=== PATIENT | female | born 1990 | race Caucasian/White ===

== ENCOUNTER 2017-07-20 07:59 | Emergency (ER) | payer MEDICAID ==
[2017-07-20 08:14] VITALS: BP 125/81
[2017-07-20 09:01] LABS: Basophils % (Auto) 0.8 % (0.0-1.8); Hematocrit 34.4 % (30.3-42.9); Hemoglobin 10.8 gm/dl (10.1-14.3); Mean Corpuscular HGB Conc 31 % (30-34); Mean Corpuscular Volume 78 fl (79-97); Platelet Count 350 K/mm3 (140-440); Red Blood Count 4.42 M/mm3 (3.65-5.03); Red Cell Distribution Width 16.7 % (13.2-15.2); White Blood Count 7.3 K/mm3 (4.5-11.0)
[2017-07-20 09:21] LABS: Mean Corpuscular Hemoglobin 24 pg (28-32)
[2017-07-20 09:23] LABS: Alanine Aminotransferase 10 units/L (7-56); Albumin/Globulin Ratio 1.3 %; Alkaline Phosphatase 54 units/L (35-129); Anion Gap 16 mmol/L; Blood Urea Nitrogen 9 mg/dL (7-17); Calcium 8.9 mg/dL (8.4-10.2); Carbon Dioxide 24 mmol/L (22-30); Chloride 104.1 mmol/L (98-107); Glucose 104 mg/dL (65-100); Lipase 16 units/L (13-60); Potassium 4.1 mmol/L (3.6-5.0); Sodium 140 mmol/L (137-145); Total Protein 7.1 g/dL (6.3-8.2)
[2017-07-20 09:24] LABS: Bacteria,Urine 1+ /HPF (Negative); Bilirubin,Urine NEG (Negative); Blood,Urine NEG (Negative); Ketones,Urine NEG (Negative); Leukocyte Esterase,Urine NEG (Negative); Mucus,Urine 3+ /HPF; Nitrite,Urine NEG (Negative); Protein,Urine <15 mg/dL mg/dL (Negative); Urobilinogen,Urine < 2.0 mg/dL (<2.0)
--- NOTE | 2017-07-20 15:12 | Emergency Department Report ---
Entered by SANTI MAX, acting as scribe for ALYSE AGUILAR PA. ED Abdominal Pain HPI - General Chief Complaint: Abdominal Pain Stated Complaint: ABD PAIN Time Seen by Provider: 07/20/17 10:23 Source: patient Mode of arrival: Ambulatory Limitations: No Limitations - History of Present Illness Initial Comments: 27 y/o female with a PMHx of gestational diabetes, migraines, asthma, heart murmur, and anemia presents to the ED c/o lower abdominal pain that began 2 days ago. Rates pain a 6/10 in severity, which she describes as aching and cramping in quality. Aggravated with movement and alleviated with nothing. Denies nausea, vomiting, diarrhea, fever, chills, dysuria, urinary frequency and urgency, and vaginal discharge. LMP 06/08/2017. Reports her menstrual cycles are usually irregular. Notes her OB is Dr. Shady Hensley at [place]. Patient also c/o a headache that began 1 week ago. Patient states that headache is sometimes in the front or in the back. Rates current headache a 7/10 in severity, which she describes as aching in quality. Denies any recent head trauma/injury, blurry vision, and LOC. Denies wearing glasses or contacts regularly. Patient states this headache does not feel similar to her previous chronic headache. NKDA. STOKES Complaint: abdominal pain Onset/Timin -: days(s) Location: LLQ, RLQ, suprapubic Radiation: none Migration to: no migration Severity: moderate Severity scale (0 -10): 6 Quality: cramping, aching Consistency: constant Improves With: nothing Worsens With: movement Context: other (possible ) Associated Symptoms: denies other symptoms. denies: nausea, vomiting, diarrhea , fever, chills, constipation, dysuria, hematemesis, hematochezia, melena, hematuria, anorexia, syncope - Related Data LMP Date: 06/08/17 LMP (females 10-50): 1 month Previous Rx's Medication Instructions Recorded Last Taken Type metroNIDAZOLE 0.75% [Vandazole 1 applicator VG QHS #5 tube 12/04/15 04/30/16 Rx 0.75% VAGINAL] Diphenhydramine HCl [Benadryl 25 mg PO Q8HR #15 tablet 12/31/15 04/30/16 11:00 Rx Allergy TAB] 1 Ferrous Sulfate [Feosol 325 MG tab] 325 mg PO BID #60 tablet 05/23/16 Unknown Rx HYDROcodone/APAP 5-325 [[place] 1 each PO Q6HR PRN #30 tablet 05/23/16 Unknown Rx 5/325] Vit W-Ca,Fe,FA(<1 mg) 1 each PO DAILY #30 tablet 05/23/16 Unknown Rx [ Vitamins] Ibuprofen [Motrin 800 MG tab] 800 mg PO Q8HR PRN #30 tablet 07/20/17 Unknown Rx Promethazine HCl [Phenergan SUPPOS] 25 mg PO Q8HR PRN #10 tab 07/20/17 Unknown Rx Sulfamethoxazole/Trimethoprim 1 each PO BID #14 tablet 07/20/17 Unknown Rx [Bactrim DS TAB] Allergies Allergy/AdvReac Type Severity Reaction Status Date / Time pineapple [Pineapple] Allergy Mild Itching Verified 03/14/14 12:24 coconut Allergy Severe Swelling Uncoded 03/13/14 21:37 ED Review of Systems Comment: All other systems reviewed and negative Constitutional: denies: chills, fever Eyes: denies: eye pain, eye discharge, vision change ENT: denies: ear pain, throat pain Respiratory: denies: cough, shortness of breath, wheezing Cardiovascular: denies: chest pain, palpitations Endocrine: no symptoms reported Gastrointestinal: abdominal pain (lower abdomen). denies: nausea, vomiting, diarrhea, constipation, hematemesis, melena, hematochezia Genitourinary: denies: urgency, dysuria, frequency, hematuria, discharge, abnormal menses, dyspareunia Musculoskeletal: denies: back pain, joint swelling, arthralgia, myalgia Skin: denies: rash, lesions Neurological: headache. denies: weakness, numbness, paresthesias, confusion, abnormal gait, vertigo Psychiatric: denies: anxiety, depression Hematological/Lymphatic: denies: easy bleeding, easy bruising ED Past Medical Hx - Past Medical History Previous Medical History?: Yes Hx Congestive Heart Failure: No Hx Diabetes: (gestational) Hx Deep Vein Thrombosis: No Hx Renal Disease: No Hx Sickle Cell Disease: No Hx Headaches / Migraines: Yes Hx Seizures: No Hx Asthma: Yes (prn meds 3 yrs ago) Hx COPD: No Additional medical history: heart murmur. anemia - Surgical History Past Surgical History?: Yes Additional Surgical History: on March, - Family History Family history: no significant - Social History Smoking Status: Never Smoker Substance Use Type: Non Opiate Pain, Prescribed - Medications Home Medications: Home Medications Medication Instructions Recorded Confirmed Last Taken Type metroNIDAZOLE 0.75% [Vandazole 1 applicator VG QHS #5 tube 12/04/15 05/22/16 Rx 0.75% VAGINAL] Diphenhydramine HCl [Benadryl 25 mg PO Q8HR #15 tablet 12/31/15 05/22/16 11:00 Rx Allergy TAB] 1 Ferrous Sulfate [Feosol 325 MG tab] 325 mg PO BID #60 tablet 05/23/16 Unknown Rx HYDROcodone/APAP 5-325 [[place] 1 each PO Q6HR PRN #30 tablet 05/23/16 Unknown Rx 5/325] Vit W-Ca,Fe,FA(<1 mg) 1 each PO DAILY #30 tablet 05/23/16 Unknown Rx [ Vitamins] Ibuprofen [Motrin 800 MG tab] 800 mg PO Q8HR PRN #30 tablet 07/20/17 Unknown Rx Promethazine HCl [Phenergan SUPPOS] 25 mg PO Q8HR PRN #10 tab 07/20/17 Unknown Rx Sulfamethoxazole/Trimethoprim 1 each PO BID #14 tablet 07/20/17 Unknown Rx [Bactrim DS TAB] ED Physical Exam - General Limitations: No Limitations General appearance: alert, in no apparent distress - Head Head exam: Present: atraumatic, normocephalic, normal inspection, other (no maxillary/frontal sinuses tenderness present) - Eye Eye exam: Present: normal appearance, PERRL, EOMI. Absent: scleral icterus, conjunctival injection, nystagmus, periorbital swelling, periorbital tenderness Pupils: Present: normal accommodation - ENT ENT exam: Present: normal exam, mucous membranes moist, normal external ear exam - Neck Neck exam: Present: normal inspection, full ROM. Absent: tenderness, meningismus, lymphadenopathy, thyromegaly - Respiratory Respiratory exam: Present: normal lung sounds bilaterally. Absent: respiratory distress, wheezes, rales, rhonchi, stridor - Cardiovascular Cardiovascular Exam: Present: regular rate, normal rhythm, normal heart sounds. Absent: systolic murmur, diastolic murmur, rubs, gallop - GI/Abdominal GI/Abdominal exam: Present: soft, normal bowel sounds. Absent: distended, tenderness, guarding, rebound, rigid - Extremities Exam Extremities exam: Present: normal inspection, full ROM - Back Exam Back exam: Present: normal inspection, full ROM - Neurological Exam Neurological exam: Present: alert, oriented X3, CN II-XII intact, normal gait, reflexes normal. Absent: motor sensory deficit - Psychiatric Psychiatric exam: Present: normal affect, normal mood - Skin Skin exam: Present: warm, dry, intact, normal color. Absent: rash ED Course Vital Signs 07/20/17 08:10 Temperature 98.6 F Pulse Rate 89 Respiratory 20 Rate Blood Pressure 125/81 O2 Sat by Pulse 99 Oximetry ED Medical Decision Making - Lab Data Result diagrams: 07/20/17 08:47 07/20/17 08:47 Laboratory Last Values WBC 7.3 K/mm3 (4.5-11.0) 07/20/17 08:47 RBC 4.42 M/mm3 (3.65-5.03) 07/20/17 08:47 Hgb 10.8 gm/dl (10.1-14.3) 07/20/17 08:47 Hct 34.4 % (30.3-42.9) 07/20/17 08:47 MCV 78 fl (79-97) L 07/20/17 08:47 MCH 24 pg (28-32) L 07/20/17 08:47 MCHC 31 % (30-34) 07/20/17 08:47 RDW 16.7 % (13.2-15.2) H 07/20/17 08:47 Plt Count 350 K/mm3 (140-440) 07/20/17 08:47 Lymph % (Auto) 30.2 % (13.4-35.0) 07/20/17 08:47 [place] % (Auto) 7.9 % (0.0-7.3) H 07/20/17 08:47 Eos % (Auto) 2.0 % (0.0-4.3) 07/20/17 08:47 Baso % (Auto) 0.8 % (0.0-1.8) 07/20/17 08:47 Lymph # 2.2 K/mm3 (1.2-5.4) 07/20/17 08:47 [place] # 0.6 K/mm3 (0.0-0.8) 07/20/17 08:47 Eos # 0.1 K/mm3 (0.0-0.4) 07/20/17 08:47 Baso # 0.1 K/mm3 (0.0-0.1) 07/20/17 08:47 Seg Neutrophils % 59.1 % (40.0-70.0) 07/20/17 08:47 Seg Neutrophils # 4.3 K/mm3 (1.8-7.7) 07/20/17 08:47 Sodium 140 mmol/L (137-145) 07/20/17 08:47 Potassium 4.1 mmol/L (3.6-5.0) 07/20/17 08:47 Chloride 104.1 mmol/L (98-107) 07/20/17 08:47 Carbon Dioxide 24 mmol/L (22-30) 07/20/17 08:47 Anion Gap 16 mmol/L 07/20/17 08:47 BUN 9 mg/dL (7-17) 07/20/17 08:47 Creatinine 0.5 mg/dL (0.7-1.2) L 07/20/17 08:47 Estimated GFR > 60 ml/min 07/20/17 08:47 BUN/Creatinine Ratio 18.00 % 07/20/17 08:47 Glucose 104 mg/dL (65-100) H 07/20/17 08:47 Calcium 8.9 mg/dL (8.4-10.2) 07/20/17 08:47 Total Bilirubin 0.30 mg/dL (0.1-1.2) 07/20/17 08:47 AST 15 units/L (5-40) 07/20/17 08:47 ALT 10 units/L (7-56) 07/20/17 08:47 Alkaline Phosphatase 54 units/L (35-129) 07/20/17 08:47 Total Protein 7.1 g/dL (6.3-8.2) 07/20/17 08:47 Albumin 4.0 g/dL (3.9-5) 07/20/17 08:47 Albumin/Globulin Ratio 1.3 % 07/20/17 08:47 Lipase 16 units/L (13-60) 07/20/17 08:47 HCG, Qual Negative (Negative) 07/20/17 08:47 Urine Color Yellow (Yellow) 07/20/17 08:50 Urine Turbidity Clear (Clear) 07/20/17 08:50 Urine pH 5.0 (5.0-7.0) 07/20/17 08:50 Ur Specific [place] 1.024 (1.003-1.030) 07/20/17 08:50 Urine Protein <15 mg/dl mg/dL (Negative) 07/20/17 08:50 Urine Glucose (UA) Neg mg/dL (Negative) 07/20/17 08:50 Urine Ketones Neg mg/dL (Negative) 07/20/17 08:50 Urine Blood Neg (Negative) 07/20/17 08:50 Urine Nitrite Neg (Negative) 07/20/17 08:50 Urine Bilirubin Neg (Negative) 07/20/17 08:50 Urine Urobilinogen < 2.0 mg/dL (<2.0) 07/20/17 08:50 Ur Leukocyte Esterase Neg (Negative) 07/20/17 08:50 Urine WBC (Auto) 2.0 /HPF (0.0-6.0) 07/20/17 08:50 Urine RBC (Auto) 5.0 /HPF (0.0-6.0) 07/20/17 08:50 U Epithel Cells (Auto) 8.0 /HPF (0-13.0) 07/20/17 08:50 Urine Bacteria (Auto) 1+ /HPF (Negative) 07/20/17 08:50 Urine Mucus 3+ /HPF 07/20/17 08:50 - Medical Decision Making 27 y/o female presents with an urinary tract infection ED course: Patient received a UA, HCG qualitative, CBC, lipase stat, and CMP. Vital signs stable patient is in no acute or respiratory distress. Discussed findings with patient about diagnoses. Discussed treatment in ED with patient Discussed with patient to take antibiotics as prescribed. Discussed findings with the patient. Discussed with patient to drink lots of fluids Discussed with patient to follow up with her OB, and to return to the ED if symptoms return or worsen. Patient states understanding and will follow instructions. Pt verbally states understanding and will comply to follow up. ED Disposition Clinical Impression: UTI (urinary tract infection) Qualifiers: Urinary tract infection type: acute cystitis Tension type headache Qualifiers: Headache chronicity pattern: acute headache Intractability: not intractable Qualified Code(s): G44.209 - Tension-type headache, unspecified, not intractable Disposition: DC-01 TO HOME OR SELFCARE Is pt being admited?: No Does the pt Need Aspirin: No Condition: Stable Instructions: Urinary Tract Infection in Women (ED), Migraine Headache (ED), Tension Headache (ED), Acute Headache (ED), Abdominal Pain (ED) Additional Instructions: Follow-up with her [employer] Dr. Shady Hensley Follow-up with her primary care physician as well. If any worsening symptoms return to ED Take all your medications as your prescribed Prescriptions: Ibuprofen [Motrin 800 MG tab] 800 mg PO Q8HR PRN #30 tablet PRN Reason: Moder Pain Unrelieved By [place] Promethazine HCl [Phenergan SUPPOS] 25 mg PO Q8HR PRN #10 tab PRN Reason: nausea/vomiting Sulfamethoxazole/Trimethoprim [Bactrim DS TAB] 1 each PO BID #14 tablet Referrals: LUIS MANUEL EWING MD [Primary Care Provider] - 3-5 Days Forms: Accompanied Note, Work/School Release Form(ED) Time of Disposition: 11:44 This documentation as recorded by the MANSOOR durant JASMINE,accurately reflects the service I personally performed and the decisions made by JEFF vera OYINLOLA A, PA.
== END 2017-07-20 11:55 | disposition home or self-care (01) ==
LOC: ED 07:59
DX: N39.0 Urinary tract infection, site not specified (principal); G44.209 Tension-type headache, unspecified, not intractable; G43.909 Migraine, unspecified, not intractable, without status migrainosus; Z91.018 Allergy to other foods
CPT/HCPCS: 36415; 80053; 81001; 83690; 84703; 85025; 99283

== ENCOUNTER 2017-10-11 17:00 | Emergency (ER) | payer OTHER ==
[2017-10-11] MEDS ORDERED: TYLENOL PO ONE (18:04)
[2017-10-11] MEDS ORDERED: TYLENOL ONE (18:07)
--- NOTE | 2017-10-11 18:28 | Emergency Department Report ---
Chief Complaint: Abdominal Pain Stated Complaint: FEVER/NAUSEA/VOMITING Time Seen by Provider: 10/11/17 18:25 - HPI History of Present Illness: Patient presents to ED with c/o constant epigastric pain x 2 days, along with non-bloody vomiting and diarrhea, dizziness, weakness and fever; denies nasal congestion, sore throat, cough, urinary sxs and vaginal bleeding or discharge - ROS Review of Systems: Negative except for those stated in HPI - Exam Vital Signs: Vital Signs 10/11/17 10/11/17 18:01 18:06 Temperature 102 F H Pulse Rate 130 H Respiratory 20 18 Rate Blood Pressure 114/70 O2 Sat by Pulse 98 Oximetry Physical Exam: NAD Obese Abdomen - soft, nontender, no guarding or rebound MSE screening note: Focused history and physical exam performed. Due to findings the following was ordered: labs, urine Patient to be seen by provider in Main ED ED Disposition for MSE Condition: Stable Instructions: Abdominal Pain (ED)
[2017-10-11 18:39] LABS: Basophils % (Auto) 0.5 % (0.0-1.8); Hematocrit 33.4 % (30.3-42.9); Hemoglobin 10.6 gm/dl (10.1-14.3); Mean Corpuscular HGB Conc 32 % (30-34); Mean Corpuscular Volume 79 fl (79-97); Platelet Count 353 K/mm3 (140-440); Red Blood Count 4.25 M/mm3 (3.65-5.03)
[2017-10-11 18:51] LABS: Mean Corpuscular Hemoglobin 25 pg (28-32)
[2017-10-11] MEDS ORDERED: ZOFRAN ODT PO ONE (18:54)
[2017-10-11] MEDS ORDERED: MOTRIN PO ONE (18:54)
[2017-10-11 19:01] LABS: Alanine Aminotransferase 13 units/L (7-56); Albumin 4.2 g/dL (3.9-5); Albumin/Globulin Ratio 1.4 %; Alkaline Phosphatase 53 units/L (35-129); Anion Gap 18 mmol/L; BUN/Creatinine Ratio 10; Blood Urea Nitrogen 7 mg/dL (7-17); Calcium 8.7 mg/dL (8.4-10.2); Carbon Dioxide 25 mmol/L (22-30); Chloride 100.2 mmol/L (98-107); Glucose 127 mg/dL (65-100); Lipase 19 units/L (13-60); Potassium 3.3 mmol/L (3.6-5.0); Sodium 140 mmol/L (137-145); Total Protein 7.2 g/dL (6.3-8.2)
[2017-10-11 20:55] LABS: Bacteria,Urine 1+ /HPF (Negative); Bilirubin,Urine NEG (Negative); Blood,Urine NEG (Negative); Ketones,Urine NEG (Negative); Leukocyte Esterase,Urine NEG (Negative); Mucus,Urine 3+ /HPF; Nitrite,Urine NEG (Negative); Protein,Urine <15 mg/dL mg/dL (Negative); Urobilinogen,Urine < 2.0 mg/dL (<2.0)
--- NOTE | 2017-10-12 00:50 | Emergency Department Report ---
- General Chief Complaint: Abdominal Pain Stated Complaint: FEVER/NAUSEA/VOMITING Time Seen by Provider: 10/11/17 18:25 Source: patient Mode of arrival: Ambulatory Limitations: No Limitations - History of Present Illness Initial Comments: 27-year-old female past medical history asthma presents with complaint of runny nose earache or sore throat malaise subjective fevers and chills and some body aches for 2 days. States her asthma has also been acting up. Patient is awake alert and oriented 3 no audible wheezing or stridor speaking in full sentences. States she has multiple sick contacts including one which may have had the flu. Patient is requesting to be tested for the flu and to be treated for her asthma. States she has had intermittent nausea over the last 2 days as well. Denies diarrhea. Denies abdominal pain. MD Complaint: fever, cough, sore throat, rhinorrhea, nasal congestion Onset/Timin -: days(s) Severity: moderate Quality: aching Consistency: intermittent Associated Symptoms: fever, chills, rhinorrhea, cough, nausea - Related Data Previous Rx's Medication Instructions Recorded Last Taken Type metroNIDAZOLE 0.75% [Vandazole 1 applicator VG QHS #5 tube 12/04/15 04/30/16 Rx 0.75% VAGINAL] Diphenhydramine HCl [Benadryl 25 mg PO Q8HR #15 tablet 12/31/15 04/30/16 11:00 Rx Allergy TAB] 1 Ferrous Sulfate [Feosol 325 MG tab] 325 mg PO BID #60 tablet 05/23/16 Unknown Rx HYDROcodone/APAP 5-325 [[place] 1 each PO Q6HR PRN #30 tablet 05/23/16 Unknown Rx 5/325] Vit Calc,Iron,Folic 1 each PO DAILY #30 tablet 05/23/16 Unknown Rx [ Vitamins] Ibuprofen [Motrin 800 MG tab] 800 mg PO Q8HR PRN #30 tablet 07/20/17 Unknown Rx Promethazine HCl [Phenergan SUPPOS] 25 mg PO Q8HR PRN #10 tab 07/20/17 Unknown Rx Sulfamethoxazole/Trimethoprim 1 each PO BID #14 tablet 07/20/17 Unknown Rx [Bactrim DS TAB] Famotidine [Pepcid] 20 mg PO BID PRN #30 tablet 10/12/17 Unknown Rx Ibuprofen [Motrin] 800 mg PO Q8HR PRN #30 tablet 10/12/17 Unknown Rx Ondansetron [Zofran Odt] 4 mg PO Q8HR PRN #20 tab.rapdis 10/12/17 Unknown Rx Oseltamivir [Tamiflu] 75 mg PO BID #10 cap 10/12/17 Unknown Rx Phenylephrine/Dm/Acetaminop/GG 10 ml PO Q4H PRN #1 liquid 10/12/17 Unknown Rx [Mucinex Ztwo-Soz-Sxnzrpdmcq Lq] Allergies Allergy/AdvReac Type Severity Reaction Status Date / Time pineapple [Pineapple] Allergy Mild Itching Verified 03/14/14 12:24 coconut Allergy Severe Swelling Uncoded 03/13/14 21:37 ED Review of Systems ROS: Stated complaint: FEVER/NAUSEA/VOMITING Other details as noted in HPI Constitutional: chills, malaise. denies: fever Eyes: denies: eye pain, eye discharge, vision change ENT: throat pain. denies: ear pain Respiratory: cough. denies: shortness of breath, wheezing Cardiovascular: denies: chest pain, palpitations Endocrine: no symptoms reported Gastrointestinal: nausea. denies: abdominal pain, diarrhea Genitourinary: denies: urgency, dysuria, discharge Musculoskeletal: denies: back pain, joint swelling, arthralgia Skin: denies: rash, lesions Neurological: denies: headache, weakness, paresthesias Psychiatric: denies: anxiety, depression Hematological/Lymphatic: denies: easy bleeding, easy bruising ED Past Medical Hx - Past Medical History Hx Congestive Heart Failure: No Hx Diabetes: (gestational) Hx Deep Vein Thrombosis: No Hx Renal Disease: No Hx Sickle Cell Disease: No Hx Headaches / Migraines: Yes Hx Seizures: No Hx Asthma: Yes (prn meds 3 yrs ago) Hx COPD: No Additional medical history: heart murmur. anemia - Surgical History Additional Surgical History: on March, - Social History Smoking Status: Never Smoker Substance Use Type: None - Medications Home Medications: Home Medications Medication Instructions Recorded Confirmed Last Taken Type metroNIDAZOLE 0.75% [Vandazole 1 applicator VG QHS #5 tube 12/04/15 05/22/16 Rx 0.75% VAGINAL] Diphenhydramine HCl [Benadryl 25 mg PO Q8HR #15 tablet 12/31/15 05/22/16 11:00 Rx Allergy TAB] 1 Ferrous Sulfate [Feosol 325 MG tab] 325 mg PO BID #60 tablet 05/23/16 Unknown Rx HYDROcodone/APAP 5-325 [[place] 1 each PO Q6HR PRN #30 tablet 05/23/16 Unknown Rx 5/325] Vit Calc,Iron,Folic 1 each PO DAILY #30 tablet 05/23/16 Unknown Rx [ Vitamins] Ibuprofen [Motrin 800 MG tab] 800 mg PO Q8HR PRN #30 tablet 07/20/17 Unknown Rx Promethazine HCl [Phenergan SUPPOS] 25 mg PO Q8HR PRN #10 tab 07/20/17 Unknown Rx Sulfamethoxazole/Trimethoprim 1 each PO BID #14 tablet 07/20/17 Unknown Rx [Bactrim DS TAB] Famotidine [Pepcid] 20 mg PO BID PRN #30 tablet 10/12/17 Unknown Rx Ibuprofen [Motrin] 800 mg PO Q8HR PRN #30 tablet 10/12/17 Unknown Rx Ondansetron [Zofran Odt] 4 mg PO Q8HR PRN #20 tab.rapdis 10/12/17 Unknown Rx Oseltamivir [Tamiflu] 75 mg PO BID #10 cap 10/12/17 Unknown Rx Phenylephrine/Dm/Acetaminop/GG 10 ml PO Q4H PRN #1 liquid 10/12/17 Unknown Rx [Mucinex Jddc-Rga-Qnytmsfglx Lq] ED Physical Exam - General Limitations: No Limitations General appearance: alert, in no apparent distress - Head Head exam: Present: atraumatic, normocephalic - Eye Eye exam: Present: normal appearance, PERRL, EOMI - ENT ENT exam: Present: mucous membranes moist - Expanded ENT Exam Expanded Throat exam: Positive: tonsillar erythema (slight tonsillar erythema no visible exudates no peritonsillar abscess) - Neck Neck exam: Present: normal inspection, full ROM - Respiratory Respiratory exam: Present: normal lung sounds bilaterally (minimal to no wheezing on auscultation no audible rhonchi). Absent: respiratory distress - Cardiovascular Cardiovascular Exam: Present: regular rate, normal rhythm. Absent: systolic murmur, diastolic murmur, rubs, gallop - GI/Abdominal GI/Abdominal exam: Present: soft (abdomen soft nontender nondistended), normal bowel sounds - Extremities Exam Extremities exam: Present: normal inspection - Back Exam Back exam: Present: normal inspection - Neurological Exam Neurological exam: Present: alert, oriented X3 - Psychiatric Psychiatric exam: Present: normal affect, normal mood - Skin Skin exam: Present: warm, dry, intact, normal color. Absent: rash ED Course Vital Signs 10/11/17 10/11/17 10/11/17 18:01 18:06 19:00 Temperature 102 F H Pulse Rate 130 H Respiratory 20 18 18 Rate Blood Pressure 114/70 Blood Pressure [Right] O2 Sat by Pulse 98 Oximetry 10/11/17 10/11/17 10/12/17 20:00 22:12 00:58 Temperature 99.2 F 97.9 F Pulse Rate 76 71 Respiratory 18 18 16 Rate Blood Pressure Blood Pressure 119/66 113/81 [Right] O2 Sat by Pulse 97 99 Oximetry ED Medical Decision Making - Lab Data Result diagrams: 10/11/17 18:25 10/11/17 18:25 - Medical Decision Making A/P: Flulike illness 1-Mucinex, Pepcid, Zofran 2-as patient is asthmatic will give Tamiflu. I discussed pros and cons of Tamiflu with the patient. Patient states she is still interested in using the medicine if it can benefit her. 3-follow-up with primary care doctor. Patient states she can follow-up within 48 hours. Critical care attestation.: If time is entered above; I have spent that time in minutes in the direct care of this critically ill patient, excluding procedure time. ED Disposition Clinical Impression: Viral syndrome, Flu-like symptoms Disposition: DC-01 TO HOME OR SELFCARE Is pt being admited?: No Does the pt Need Aspirin: No Condition: Stable Instructions: Upper Respiratory Infection (ED), Viral Syndrome (ED), Abdominal Pain (ED), Cold Symptoms (ED) Prescriptions: Famotidine [Pepcid] 20 mg PO BID PRN #30 tablet PRN Reason: Indigestion Ibuprofen [Motrin] 800 mg PO Q8HR PRN #30 tablet PRN Reason: Fever Ondansetron [Zofran Odt] 4 mg PO Q8HR PRN #20 tab.rapdis PRN Reason: Nausea Oseltamivir [Tamiflu] 75 mg PO BID #10 cap Phenylephrine/Dm/Acetaminop/GG [Mucinex Ccan-Drw-Bucxfjfyeb Lq] 10 ml PO Q4H PRN #1 liquid PRN Reason: Cough Referrals: LUIS MANUEL EWING MD [Primary Care Provider] - 3-5 Days Forms: Work/School Release Form(ED) Time of Disposition: 01:34
[2017-10-12] MEDS ORDERED: ZOFRAN ODT PO ONE (00:58)
[2017-10-12] MEDS ORDERED: TYLENOL PO ONE (00:58)
[2017-10-12 00:59] VITALS: BP 113/81
== END 2017-10-12 01:50 | disposition home or self-care (01) ==
LOC: ED 17:00
DX: B34.9 Viral infection, unspecified (principal); J11.1 Influenza due to unidentified influenza virus with other respiratory manifestations; G43.909 Migraine, unspecified, not intractable, without status migrainosus; J45.909 Unspecified asthma, uncomplicated; D64.9 Anemia, unspecified; Z91.018 Allergy to other foods
CPT/HCPCS: 36415; 80053; 81001; 81025; 83690; 85025; 87400; 99283; Q0162

== ENCOUNTER 2018-02-10 23:12 | Emergency (ER) | payer OTHER ==
[2018-02-11 00:45] LABS: Bilirubin,Urine NEG (Negative); Blood,Urine NEG (Negative); Color,Urine Yellow (Yellow); Mucus,Urine 3+ /HPF; Protein,Urine <15 mg/dL mg/dL (Negative); Urobilinogen,Urine < 2.0 mg/dL (<2.0)
[2018-02-11 01:03] LABS: HCG Qualitative,Urine Negative (Negative)
--- NOTE | 2018-02-11 02:38 | XRay Report ---
FINAL REPORT EXAM: XR CHEST ROUTINE 2V HISTORY: fever and cough TECHNIQUE: PA and lateral views of the chest PRIORS: None. FINDINGS: Lines, tubes, and devices: N/A Lungs and pleura: Trachea is normal in position. There is subtle infiltrate in the right lung base, asymmetric to the left. There is no evidence for the pleural effusion, vascular congestion, or pneumothorax. Cardiomediastinal silhouette: Cardiac and mediastinal silhouettes are unremarkable. Other: Bony structures are intact. IMPRESSION: Subtle infiltrate in the right lung base
--- NOTE | 2018-02-11 02:54 | Emergency Department Report ---
- General Chief Complaint: Upper Respiratory Infection Stated Complaint: URI SX Time Seen by Provider: 02/11/18 02:39 Source: patient Mode of arrival: Ambulatory Limitations: No Limitations - History of Present Illness Initial Comments: This is a 27-year-old female nontoxic, well nourished in appearance, no acute signs of distress presents to the ED with c/o of productive cough, fever, sore throat, chills,, rhinorrhea, nasal congestion x2 days. Patient describes productive cough as yellow mucus production. Patient denies any sick contact. Patient denies any recent travels, long car, recent hospital stays. Patient denies any calf pain or calf tenderness. Patient denies any chest pain, short of breath, fever, chills, nausea, vomiting, hemoptysis, numbness, tingling, headache or stiff neck. Patient denies any drug allergies. Patient denies significant past medical history. MD Complaint: fever, cough, sore throat, rhinorrhea, nasal congestion -: days(s) (2) Severity: mild Consistency: constant Improves With: nothing Worsens With: nothing Associated Symptoms: rhinorrhea, nasal congestion, sore throat, cough. denies: fever, chills, myalgias, diaphoresis, headache, stiff neck, chest pain, shortness of breath, abdominal pain, nausea, vomiting, diarrhea, dysuria, rash, confusion, right sweats, weight loss, epistaxis, hoarseness, ear pain - Related Data Previous Rx's Medication Instructions Recorded Last Taken Type metroNIDAZOLE 0.75% [Vandazole 1 applicator VG QHS #5 tube 12/04/15 04/30/16 Rx 0.75% VAGINAL] Diphenhydramine HCl [Benadryl 25 mg PO Q8HR #15 tablet 12/31/15 04/30/16 11:00 Rx Allergy TAB] 1 Ferrous Sulfate [Feosol 325 MG tab] 325 mg PO BID #60 tablet 05/23/16 Unknown Rx HYDROcodone/APAP 5-325 [[place] 1 each PO Q6HR PRN #30 tablet 05/23/16 Unknown Rx 5/325] Vit Calc,Iron,Folic 1 each PO DAILY #30 tablet 05/23/16 Unknown Rx [ Vitamins] Ibuprofen [Motrin 800 MG tab] 800 mg PO Q8HR PRN #30 tablet 07/20/17 Unknown Rx Promethazine HCl [Phenergan SUPPOS] 25 mg PO Q8HR PRN #10 tab 07/20/17 Unknown Rx Sulfamethoxazole/Trimethoprim 1 each PO BID #14 tablet 07/20/17 Unknown Rx [Bactrim DS TAB] Famotidine [Pepcid] 20 mg PO BID PRN #30 tablet 10/12/17 Unknown Rx Ibuprofen [Motrin] 800 mg PO Q8HR PRN #30 tablet 10/12/17 Unknown Rx Ondansetron [Zofran Odt] 4 mg PO Q8HR PRN #20 tab.rapdis 10/12/17 Unknown Rx Oseltamivir [Tamiflu] 75 mg PO BID #10 cap 10/12/17 Unknown Rx Phenylephrine/Dm/Acetaminop/GG 10 ml PO Q4H PRN #1 liquid 10/12/17 Unknown Rx [Mucinex Ipmn-Wvu-Dsihmdmkit Lq] Azithromycin [Zithromax Z-NICOLASA] 250 mg PO DAILY #6 tablet 02/11/18 Unknown Rx Benzonatate [Tessalon Perle] 100 mg PO Q6H PRN #20 capsule 02/11/18 Unknown Rx Ibuprofen [Motrin] 600 mg PO Q8H PRN #30 tablet 02/11/18 Unknown Rx Nystas/Diphen/Xyl Visc/Mylanta 15 ml MM Q4H PRN 10 Days ml 02/11/18 Unknown Rx [Magic Mouthwash] Allergies Allergy/AdvReac Type Severity Reaction Status Date / Time pineapple [Pineapple] Allergy Mild Itching Verified 03/14/14 12:24 coconut Allergy Severe Swelling Uncoded 03/13/14 21:37 ED Review of Systems ROS: Stated complaint: URI SX Other details as noted in HPI Constitutional: denies: chills, fever Eyes: denies: eye pain, eye discharge, vision change ENT: throat pain. denies: ear pain Respiratory: cough. denies: shortness of breath, wheezing Cardiovascular: denies: chest pain, palpitations Endocrine: no symptoms reported Gastrointestinal: denies: abdominal pain, nausea, diarrhea Genitourinary: denies: urgency, dysuria, discharge Musculoskeletal: denies: back pain, joint swelling, arthralgia Skin: denies: rash, lesions Neurological: denies: headache, weakness, paresthesias Psychiatric: denies: anxiety, depression Hematological/Lymphatic: denies: easy bleeding, easy bruising ED Past Medical Hx - Past Medical History Hx Congestive Heart Failure: No Hx Diabetes: (gestational) Hx Deep Vein Thrombosis: No Hx Renal Disease: No Hx Sickle Cell Disease: No Hx Headaches / Migraines: Yes Hx Seizures: No Hx Asthma: Yes (prn meds 3 yrs ago) Hx COPD: No Additional medical history: heart murmur. anemia - Surgical History Additional Surgical History: on March, - Social History Smoking Status: Never Smoker Substance Use Type: None - Medications Home Medications: Home Medications Medication Instructions Recorded Confirmed Last Taken Type metroNIDAZOLE 0.75% [Vandazole 1 applicator VG QHS #5 tube 12/04/15 05/22/16 Rx 0.75% VAGINAL] Diphenhydramine HCl [Benadryl 25 mg PO Q8HR #15 tablet 12/31/15 05/22/16 11:00 Rx Allergy TAB] 1 Ferrous Sulfate [Feosol 325 MG tab] 325 mg PO BID #60 tablet 05/23/16 Unknown Rx HYDROcodone/APAP 5-325 [[place] 1 each PO Q6HR PRN #30 tablet 05/23/16 Unknown Rx 5/325] Vit Calc,Iron,Folic 1 each PO DAILY #30 tablet 05/23/16 Unknown Rx [ Vitamins] Ibuprofen [Motrin 800 MG tab] 800 mg PO Q8HR PRN #30 tablet 07/20/17 Unknown Rx Promethazine HCl [Phenergan SUPPOS] 25 mg PO Q8HR PRN #10 tab 07/20/17 Unknown Rx Sulfamethoxazole/Trimethoprim 1 each PO BID #14 tablet 07/20/17 Unknown Rx [Bactrim DS TAB] Famotidine [Pepcid] 20 mg PO BID PRN #30 tablet 10/12/17 Unknown Rx Ibuprofen [Motrin] 800 mg PO Q8HR PRN #30 tablet 10/12/17 Unknown Rx Ondansetron [Zofran Odt] 4 mg PO Q8HR PRN #20 tab.rapdis 10/12/17 Unknown Rx Oseltamivir [Tamiflu] 75 mg PO BID #10 cap 10/12/17 Unknown Rx Phenylephrine/Dm/Acetaminop/GG 10 ml PO Q4H PRN #1 liquid 10/12/17 Unknown Rx [Mucinex Aniw-Ukz-Plmzuqjozl Lq] Azithromycin [Zithromax Z-NICOLASA] 250 mg PO DAILY #6 tablet 02/11/18 Unknown Rx Benzonatate [Tessalon Perle] 100 mg PO Q6H PRN #20 capsule 02/11/18 Unknown Rx Ibuprofen [Motrin] 600 mg PO Q8H PRN #30 tablet 02/11/18 Unknown Rx Nystas/Diphen/Xyl Visc/Mylanta 15 ml MM Q4H PRN 10 Days ml 02/11/18 Unknown Rx [Magic Mouthwash] ED Physical Exam - General Limitations: No Limitations General appearance: alert, in no apparent distress - Head Head exam: Present: atraumatic, normocephalic - Eye Eye exam: Present: normal appearance Pupils: Present: normal accommodation - ENT ENT exam: Present: mucous membranes moist, TM's normal bilaterally, normal external ear exam - Expanded ENT Exam Expanded Ear exam: Present: normal external inspection Mouth exam: Present: normal external inspection, tongue normal. Absent: drooling, trismus, muffled voice, tongue elevation, laceration Teeth exam: Present: normal inspection Throat exam: Positive: tonsillar erythema, other (Uvula midline. No abscess.). Negative: tonsillomegaly, tonsillar exudate, R peritonsillar mass, L peritonsillar mass - Neck Neck exam: Present: normal inspection, full ROM. Absent: tenderness, meningismus, lymphadenopathy, thyromegaly - Respiratory Respiratory exam: Present: normal lung sounds bilaterally. Absent: respiratory distress, wheezes, rales, rhonchi, stridor - Cardiovascular Cardiovascular Exam: Present: regular rate, normal rhythm, normal heart sounds. Absent: irregular rhythm, systolic murmur, diastolic murmur, rubs, gallop - GI/Abdominal GI/Abdominal exam: Present: soft, normal bowel sounds - Extremities Exam Extremities exam: Present: normal inspection, full ROM, normal capillary refill - Back Exam Back exam: Present: normal inspection, full ROM - Neurological Exam Neurological exam: Present: alert, oriented X3, normal gait - Psychiatric Psychiatric exam: Present: normal affect, normal mood - Skin Skin exam: Present: warm, dry, intact, normal color. Absent: rash ED Course Vital Signs 02/11/18 00:20 Temperature 98.1 F Pulse Rate 102 H Respiratory 16 Rate Blood Pressure 123/69 O2 Sat by Pulse 98 Oximetry - Reevaluation(s) Reevaluation #1: 02/11/18 02:52 Patient is speaking in full sentences with no signs of distress noted. ED Medical Decision Making - Medical Decision Making This is a 27-year-old female that presents with PNA. Patient is stable and was examined by me and Dr. Sharp. Chest x-ray has been obtained and dictated by radiologist. Wells Criteria for PE/DVT 0 points. Patient is notified of x-ray results with no questions noted. Due to patient having symptoms of upper respiratory infection and worsening I will treat patient with zpak. Patient was instructed to increase hydration, rest and take Motrin for fever episodes. Vitals stable. Patient is nonfebrile and normal heart rate. Patient was orally hydrated and patient tolerated well known nausea or vomiting. Patient was instructed Follow-up with a primary care doctor in 3-5 days or if symptoms worsen and continue return to emergency room as soon as possible. At time time of discharge, the patient does not seem toxic or ill in appearance. No acute signs of distress noted. Patient agrees to discharge treatment plan of care. No further questions noted by the patient. Critical care attestation.: If time is entered above; I have spent that time in minutes in the direct care of this critically ill patient, excluding procedure time. ED Disposition Clinical Impression: PNA (pneumonia) Qualifiers: Pneumonia type: due to unspecified organism Laterality: right Lung location: lower lobe of lung Qualified Code(s): J18.1 - Lobar pneumonia, unspecified organism Disposition: - TO HOME OR SELFCARE Is pt being admited?: No Does the pt Need Aspirin: No Condition: Stable Instructions: Bacterial Pneumonia (ED), Azithromycin (By mouth), Ibuprofen (By mouth), Benzonatate (By mouth) Additional Instructions: Follow-up with a primary care doctor in 3-5 days or if symptoms worsen and continue return to emergency room as soon as possible. Prescriptions: Azithromycin [Zithromax Z-NICOLASA] 250 mg PO DAILY #6 tablet Benzonatate [Tessalon Perle] 100 mg PO Q6H PRN #20 capsule PRN Reason: Cough Ibuprofen [Motrin] 600 mg PO Q8H PRN #30 tablet PRN Reason: Pain Nystas/Diphen/Xyl Visc/Mylanta [Magic Mouthwash] 15 ml MM Q4H PRN 10 Days ml PRN Reason: Sore Throat Referrals: PRIMARY CARE, [Primary Care Provider] - 3-5 Days ANGEL MARTIN MD [Staff Physician] - 3-[address] [facility] [Outside] - 3-5 Days [facility] [Outside] - 3-5 Days Forms: Work/School Release Form(ED)
[2018-02-11 05:24] VITALS: BP 125/64
== END 2018-02-11 03:15 | disposition home or self-care (01) ==
LOC: ED 23:12
DX: J18.9 Pneumonia, unspecified organism (principal); J45.909 Unspecified asthma, uncomplicated; G43.909 Migraine, unspecified, not intractable, without status migrainosus; Z91.018 Allergy to other foods; Z86.2 Personal history of diseases of the blood and blood-forming organs and certain disorders involving the immune mechanism
CPT/HCPCS: 71046; 81001; 81025; 87116; 87430; 99284

== ENCOUNTER 2018-02-20 10:31 | Emergency (ER) | payer OTHER ==
--- NOTE | 2018-02-20 12:44 | Emergency Department Report ---
ED Chest Pain HPI - General Chief Complaint: Chest Pain Stated Complaint: ABDOMINAL/CHEST PAIN Time Seen by Provider: 02/20/18 12:32 Source: patient Mode of arrival: Ambulatory Limitations: No Limitations - History of Present Illness Initial Comments: This is a 27-year-old female known to me nontoxic, well nourished in appearance , no acute signs of distress presents to the ED with c/o of chest tightness and bilateral rib pain that radiates to back x2 days. Patient was seen by me on 04/2018 and was diagnosed with pneumonia and finished a course of antibiotics and symptoms has resolved but then patient stated 2 days ago she developed these new symptoms. Patient stated it is aggravated during coughing and relieved with rest. Patient denies any chest pain, difficulty breathing, hemoptysis, calf pain or calf tenderness. Patient denies any abdmominal pain or flank pain. Patient denies any pelvic pain. Patient denies any recent travels, long car rides, or recent hospital stays. Patient also stated had 2 positive tests yesterday and is wondering if she is . Patient denies any numbness, tingling, radiation of pain, fever, chills, productive cough. Patient denies any drug allergies. Past medical history includes asthma, gestational diabetes and headaches. MD Complaint: chest pain -: days(s) (2) Onset: other (during cough) Pain Location: substernal Pain Radiation: none Severity: mild Severity scale (0 -10): 8 Quality: aching Consistency: constant Improves With: rest Worsens With: inspiration, other (coughing) re: denies: nausea, vomting, diaphoresis, dyspnea, sense of impending doom Other Symptoms: denies: cough, fever, syncope, rash, acid taste in mouth, leg swelling, palpitations, burping Treatments Prior to Arrival: none Aspirin use within the Past 7 Days: (0) No - Related Data On Oral Contraceptives: No Previous Rx's Medication Instructions Recorded Last Taken Type metroNIDAZOLE 0.75% [Vandazole 1 applicator VG QHS #5 tube 12/04/15 04/30/16 Rx 0.75% VAGINAL] Diphenhydramine HCl [Benadryl 25 mg PO Q8HR #15 tablet 12/31/15 04/30/16 11:00 Rx Allergy TAB] 1 Ferrous Sulfate [Feosol 325 MG tab] 325 mg PO BID #60 tablet 05/23/16 Unknown Rx HYDROcodone/APAP 5-325 [[place] 1 each PO Q6HR PRN #30 tablet 05/23/16 Unknown Rx 5/325] Vit Calc,Iron,Folic 1 each PO DAILY #30 tablet 05/23/16 Unknown Rx [ Vitamins] Ibuprofen [Motrin 800 MG tab] 800 mg PO Q8HR PRN #30 tablet 07/20/17 Unknown Rx Promethazine HCl [Phenergan SUPPOS] 25 mg PO Q8HR PRN #10 tab 07/20/17 Unknown Rx Sulfamethoxazole/Trimethoprim 1 each PO BID #14 tablet 07/20/17 Unknown Rx [Bactrim DS TAB] Famotidine [Pepcid] 20 mg PO BID PRN #30 tablet 10/12/17 Unknown Rx Ibuprofen [Motrin] 800 mg PO Q8HR PRN #30 tablet 10/12/17 Unknown Rx Ondansetron [Zofran Odt] 4 mg PO Q8HR PRN #20 tab.rapdis 10/12/17 Unknown Rx Oseltamivir [Tamiflu] 75 mg PO BID #10 cap 10/12/17 Unknown Rx Phenylephrine/Dm/Acetaminop/GG 10 ml PO Q4H PRN #1 liquid 10/12/17 Unknown Rx [Mucinex Hgju-Oae-Impxjmysvn Lq] Azithromycin [Zithromax Z-NICOLASA] 250 mg PO DAILY #6 tablet 02/11/18 Unknown Rx Benzonatate [Tessalon Perle] 100 mg PO Q6H PRN #20 capsule 02/11/18 Unknown Rx Ibuprofen [Motrin] 600 mg PO Q8H PRN #30 tablet 02/11/18 Unknown Rx Nystas/Diphen/Xyl Visc/Mylanta 15 ml MM Q4H PRN 10 Days ml 02/11/18 Unknown Rx [Magic Mouthwash] Acetaminophen 500 mg PO Q6H PRN #30 tablet 02/20/18 Unknown Rx Allergies Allergy/AdvReac Type Severity Reaction Status Date / Time pineapple [Pineapple] Allergy Mild Itching Verified 03/14/14 12:24 coconut Allergy Severe Swelling Uncoded 03/13/14 21:37 Heart Score - HEART Score History: Slightly suspicious EKG: Normal Age: < 45 Risk factors: No known risk factors Troponin: < normal limit HEART Score: 0 ED Review of Systems ROS: Stated complaint: ABDOMINAL/CHEST PAIN Other details as noted in HPI Constitutional: denies: chills, fever Eyes: denies: eye pain, eye discharge, vision change ENT: denies: ear pain, throat pain Respiratory: denies: cough, shortness of breath, wheezing Cardiovascular: chest pain. denies: palpitations Endocrine: no symptoms reported Gastrointestinal: denies: abdominal pain, nausea, diarrhea Genitourinary: denies: urgency, dysuria, discharge Musculoskeletal: denies: back pain, joint swelling, arthralgia Skin: denies: rash, lesions Neurological: denies: headache, weakness, paresthesias Psychiatric: denies: anxiety, depression Hematological/Lymphatic: denies: easy bleeding, easy bruising ED Past Medical Hx - Past Medical History Previous Medical History?: Yes Hx Congestive Heart Failure: No Hx Diabetes: (gestational) Hx Deep Vein Thrombosis: No Hx Renal Disease: No Hx Sickle Cell Disease: No Hx Headaches / Migraines: Yes Hx Seizures: No Hx Asthma: Yes (prn meds 3 yrs ago) Hx COPD: No Additional medical history: heart murmur. anemia, pneumonia - Surgical History Past Surgical History?: Yes Additional Surgical History: on March, - Social History Smoking Status: Never Smoker Substance Use Type: Prescribed - Medications Home Medications: Home Medications Medication Instructions Recorded Confirmed Last Taken Type metroNIDAZOLE 0.75% [Vandazole 1 applicator VG QHS #5 tube 12/04/15 05/22/16 Rx 0.75% VAGINAL] Diphenhydramine HCl [Benadryl 25 mg PO Q8HR #15 tablet 12/31/15 05/22/16 11:00 Rx Allergy TAB] 1 Ferrous Sulfate [Feosol 325 MG tab] 325 mg PO BID #60 tablet 05/23/16 Unknown Rx HYDROcodone/APAP 5-325 [[place] 1 each PO Q6HR PRN #30 tablet 05/23/16 Unknown Rx 5/325] Vit Calc,Iron,Folic 1 each PO DAILY #30 tablet 05/23/16 Unknown Rx [ Vitamins] Ibuprofen [Motrin 800 MG tab] 800 mg PO Q8HR PRN #30 tablet 07/20/17 Unknown Rx Promethazine HCl [Phenergan SUPPOS] 25 mg PO Q8HR PRN #10 tab 07/20/17 Unknown Rx Sulfamethoxazole/Trimethoprim 1 each PO BID #14 tablet 07/20/17 Unknown Rx [Bactrim DS TAB] Famotidine [Pepcid] 20 mg PO BID PRN #30 tablet 10/12/17 Unknown Rx Ibuprofen [Motrin] 800 mg PO Q8HR PRN #30 tablet 10/12/17 Unknown Rx Ondansetron [Zofran Odt] 4 mg PO Q8HR PRN #20 tab.rapdis 10/12/17 Unknown Rx Oseltamivir [Tamiflu] 75 mg PO BID #10 cap 10/12/17 Unknown Rx Phenylephrine/Dm/Acetaminop/GG 10 ml PO Q4H PRN #1 liquid 10/12/17 Unknown Rx [Mucinex Bqnm-Aun-Iuqmmdsypi Lq] Azithromycin [Zithromax Z-NICOLASA] 250 mg PO DAILY #6 tablet 02/11/18 Unknown Rx Benzonatate [Tessalon Perle] 100 mg PO Q6H PRN #20 capsule 02/11/18 Unknown Rx Ibuprofen [Motrin] 600 mg PO Q8H PRN #30 tablet 02/11/18 Unknown Rx Nystas/Diphen/Xyl Visc/Mylanta 15 ml MM Q4H PRN 10 Days ml 02/11/18 Unknown Rx [Magic Mouthwash] Acetaminophen 500 mg PO Q6H PRN #30 tablet 02/20/18 Unknown Rx ED Physical Exam - General Limitations: No Limitations General appearance: alert, in no apparent distress - Head Head exam: Present: atraumatic, normocephalic - Eye Eye exam: Present: normal appearance Pupils: Present: normal accommodation - ENT ENT exam: Present: normal exam, normal orophraynx, mucous membranes moist, TM's normal bilaterally, normal external ear exam - Neck Neck exam: Present: normal inspection, full ROM. Absent: tenderness, meningismus - Respiratory Respiratory exam: Present: normal lung sounds bilaterally, chest wall tenderness (midsternum). Absent: respiratory distress, wheezes, rales, rhonchi , stridor, accessory muscle use, decreased breath sounds, prolonged expiratory - Cardiovascular Cardiovascular Exam: Present: regular rate, normal rhythm, normal heart sounds. Absent: irregular rhythm, systolic murmur, diastolic murmur, rubs, gallop - GI/Abdominal GI/Abdominal exam: Present: soft, normal bowel sounds. Absent: distended, tenderness, guarding, rebound, rigid, diminished bowel sounds - Rectal Rectal exam: Present: deferred - Extremities Exam Extremities exam: Present: normal inspection, full ROM, normal capillary refill. Absent: tenderness - Back Exam Back exam: Present: normal inspection, full ROM - Neurological Exam Neurological exam: Present: alert, oriented X3, normal gait - Psychiatric Psychiatric exam: Present: normal affect, normal mood - Skin Skin exam: Present: warm, dry, intact, normal color. Absent: rash ED Course Vital Signs 02/20/18 11:01 Temperature 98.8 F Pulse Rate 96 H Respiratory 20 Rate Blood Pressure 120/65 O2 Sat by Pulse 100 Oximetry - Reevaluation(s) Reevaluation #1: 02/20/18 12:45 Patient is speaking in full sentences with no signs of distress noted. Reevaluation #2: 02/20/18 13:28 Patient was notified of the risks of chest xray and but patient stated to proceed with xray. Patient signed the consent as well. vp of technology was notified to have the patient full covered abdomen to avoid any radiation. TOÑO score - Toño Score Age > 65: (0) No Aspirin use within the Past 7 Days: (0) No 3 or more CAD Risk Factors: (0) No 2 or more Angina events in past 24 hrs: (0) No Known CAD with more than 50% Stenosis: (0) No Elevated Cardiac Markers: (0) No ST Deviation Greater than 0.5mm: (0) No TOÑO Score: 0 ED Medical Decision Making - Lab Data Result diagrams: 02/20/18 12:49 02/20/18 12:49 - Medical Decision Making This is a 27-year-old female that presents with bronchitis. Patient is stable and was examined by me. Patient just finished her course of zpak for PNA. Chest xray within normal limits. EKG normal sinus rhythm with no ST abnormalities. D-dimmer and Trop negative. No abdominal pain or pelvic pain. No back pain. Patient was referred to Follow-up with a primary care doctor in 3-5 days or if symptoms worsen and continue return to emergency room as soon as possible. At time of discharge, the patient does not seem toxic or ill in appearance. No acute signs of distress noted. Patient agrees to discharge treatment plan of care. No further questions noted by the patient. Critical care attestation.: If time is entered above; I have spent that time in minutes in the direct care of this critically ill patient, excluding procedure time. ED Disposition Clinical Impression: Bronchitis, confirmed by positive blood test Disposition: TO HOME OR SELFCARE Is pt being admited?: No Does the pt Need Aspirin: No Condition: Stable Instructions: Acute Bronchitis (ED), (ED) Additional Instructions: Follow-up with a primary care doctor in 3-5 days or if symptoms worsen and continue return to emergency room as soon as possible. Prescriptions: Acetaminophen 500 mg PO Q6H PRN #30 tablet PRN Reason: pain Referrals: PRIMARY CAREMD [Primary Care Provider] - 3-5 Days ANGEL MARTIN MD [Staff Physician] - 3-5 Days [facility] [Outside] - 3-5 Days [facility] [Outside] - 3-5 Days Forms: Work/School Release Form(ED)
[2018-02-20 13:06] LABS: Bilirubin,Urine NEG (Negative); Blood,Urine NEG (Negative); Color,Urine Yellow (Yellow); Mucus,Urine 2+ /HPF; Protein,Urine <15 mg/dL mg/dL (Negative); Urobilinogen,Urine < 2.0 mg/dL (<2.0)
[2018-02-20 13:07] LABS: Basophils # (Auto) 0.1 K/mm3 (0.0-0.1); Basophils % (Auto) 0.9 % (0.0-1.8); Eosinophils # (Auto) 0.1 K/mm3 (0.0-0.4); Eosinophils % (Auto) 0.9 % (0.0-4.3); Hematocrit 35.5 % (30.3-42.9); Hemoglobin 11.6 gm/dl (10.1-14.3); Lymphocytes % (Auto) 27.5 % (13.4-35.0); Mean Corpuscular HGB Conc 33 % (30-34); Mean Corpuscular Volume 79 fl (79-97); Monocytes # (Auto) 0.4 K/mm3 (0.0-0.8); Monocytes % (Auto) 6.3 % (0.0-7.3); Platelet Count 342 K/mm3 (140-440); Red Blood Count 4.48 M/mm3 (3.65-5.03)
[2018-02-20 13:08] LABS: HCG Qualitative,Urine Positive (Negative)
[2018-02-20 13:08] LABS: Mean Corpuscular Hemoglobin 26 pg (28-32)
[2018-02-20 13:24] LABS: BUN/Creatinine Ratio 14; Blood Urea Nitrogen 7 mg/dL (7-17); Calcium 8.6 mg/dL (8.4-10.2); Hemolysis Index 6
--- NOTE | 2018-02-20 13:52 | XRay Report ---
ROUTINE CHEST, TWO VIEWS: HISTORY: chest pain. The trachea, heart, mediastinal contour, lung cee and bony thorax are unremarkable. IMPRESSION: Unremarkable chest x-ray.
[2018-02-20 13:58] LABS: Creatine Kinase MB 1.1 ng/mL (0.0-4.0)
[2018-02-20 14:37] VITALS: BP 123/74
== END 2018-02-20 14:36 | disposition home or self-care (01) ==
LOC: ED 10:31
DX: O26.899 Other specified pregnancy related conditions, unspecified trimester (principal); J40 Bronchitis, not specified as acute or chronic; G43.909 Migraine, unspecified, not intractable, without status migrainosus; Z91.018 Allergy to other foods; Z3A.00 Weeks of gestation of pregnancy not specified
CPT/HCPCS: 36415; 71046; 80048; 81001; 81025; 82550; 82553; 84484; 84702; 85025; 85379; 93005; 93010; 99284

== ENCOUNTER 2018-02-21 12:30 | Emergency (ER) | payer OTHER ==
[2018-02-21 17:05] LABS: Basophils # (Auto) 0.1 K/mm3 (0.0-0.1); Basophils % (Auto) 0.7 % (0.0-1.8); Eosinophils # (Auto) 0.1 K/mm3 (0.0-0.4); Eosinophils % (Auto) 0.7 % (0.0-4.3); Hematocrit 36.9 % (30.3-42.9); Hemoglobin 12.1 gm/dl (10.1-14.3); Lymphocytes # (Auto) 2.3 K/mm3 (1.2-5.4); Mean Corpuscular HGB Conc 33 % (30-34); Mean Corpuscular Hemoglobin 26 pg (28-32); Mean Corpuscular Volume 81 fl (79-97); Monocytes # (Auto) 0.6 K/mm3 (0.0-0.8); Monocytes % (Auto) 5.1 % (0.0-7.3); Platelet Count 317 K/mm3 (140-440); Red Blood Count 4.57 M/mm3 (3.65-5.03)
[2018-02-21 17:28] LABS: BUN/Creatinine Ratio 16; Blood Urea Nitrogen 8 mg/dL (7-17); Calcium 8.8 mg/dL (8.4-10.2); Hemolysis Index 43
--- NOTE | 2018-02-21 18:50 | Ultrasound Report ---
FINAL REPORT PROCEDURE: US OB < = 14 WEEKS FETUS TECHNIQUE: Real-time transabdominal sonography of the uterus, placenta, amniotic fluid, adnexa, and fetus was performed with image documentation. Measurements were obtained to determine age/size. M-mode Doppler was used to document heartbeat. CPT 91755 HISTORY: vag bleeding + hcg COMPARISON: Transvaginal OB ultrasound also performed today. FINDINGS: The report for this exam was generated using images from both the transabdominal and the transvaginal OB ultrasound both of which were performed today. The endometrial stripe is thickened measuring 18.5 millimeter. I do not see a gestational sac pole or heartbeat. No uterine masses are identified. The uterus measures 9.4 x 5.2 x 6.0 centimeters. No free fluid is seen in the cul-de-sac. Right ovary is unremarkable measuring 2.8 x 2.3 x 1.8 centimeter. Left ovary is suboptimally visualized measuring 3.3 x 1.5 x 2.1 centimeter. IMPRESSION: The endometrial stripe is thickened. No intrauterine gestation is visualized. The ovaries show no gross abnormality. No abnormal adnexal masses are seen. Recommend following serial beta HCG levels and follow-up pelvic ultrasound if clinically indicated. Ectopic cannot be entirely excluded.
--- NOTE | 2018-02-21 18:52 | Emergency Department Report ---
<MATTHEW DAY - Last Filed: 02/21/18 18:44> ED HPI - General Chief complaint: Abdominal Pain Stated complaint: ABD PAIN/BLEEDING/PREG. Time Seen by Provider: 02/21/18 18:13 Source: patient Mode of arrival: Ambulatory Limitations: No Limitations - History of Present Illness Initial comments: This is a 27-year-old female nontoxic, well nourished in appearance, no acute signs of distress presents to the ED with c/o of vaginal bleeding x1 day. Patient is known to me and was seen by me yesterday with HCG count of 25. Patient denied any vaginal bleeding yesterday but stated vaginal bleeding occurred today. Patient describes vaginal bleeding as only spotting that occurred a total of 3 times. Patient stated last vaginal bleeding was this morning. Patient denies any abdominal pain, back pain, fever, chills, nausea, vomiting, headache, stiff neck, numbness or tingling. The patient denies any allergies or significant past medical history. MD Complaint: vaginal bleeding -: days(s) (1) Radiation: none Severity: mild Severity scale (0 -10): 0 Improves with: none Worsens with: none Associated symptoms: vaginal bleeding. denies: nausea/vomiting, vaginal discharge, abdominal pain, dysuria, headache, vision changes, malaise, dysparuenia, rash, seizure, shortness of breath, syncope, weakness Vaginal bleeding: light :: Yes Pre- care: none - Related Data Previous Rx's Medication Instructions Recorded Last Taken Type metroNIDAZOLE 0.75% [Vandazole 1 applicator VG QHS #5 tube 12/04/15 04/30/16 Rx 0.75% VAGINAL] Diphenhydramine HCl [Benadryl 25 mg PO Q8HR #15 tablet 12/31/15 04/30/16 11:00 Rx Allergy TAB] 1 Ferrous Sulfate [Feosol 325 MG tab] 325 mg PO BID #60 tablet 05/23/16 Unknown Rx HYDROcodone/APAP 5-325 [[place] 1 each PO Q6HR PRN #30 tablet 05/23/16 Unknown Rx 5/325] Vit Calc,Iron,Folic 1 each PO DAILY #30 tablet 05/23/16 Unknown Rx [ Vitamins] Ibuprofen [Motrin 800 MG tab] 800 mg PO Q8HR PRN #30 tablet 07/20/17 Unknown Rx Promethazine HCl [Phenergan SUPPOS] 25 mg PO Q8HR PRN #10 tab 07/20/17 Unknown Rx Sulfamethoxazole/Trimethoprim 1 each PO BID #14 tablet 07/20/17 Unknown Rx [Bactrim DS TAB] Famotidine [Pepcid] 20 mg PO BID PRN #30 tablet 10/12/17 Unknown Rx Ibuprofen [Motrin] 800 mg PO Q8HR PRN #30 tablet 10/12/17 Unknown Rx Ondansetron [Zofran Odt] 4 mg PO Q8HR PRN #20 tab.rapdis 10/12/17 Unknown Rx Oseltamivir [Tamiflu] 75 mg PO BID #10 cap 10/12/17 Unknown Rx Phenylephrine/Dm/Acetaminop/GG 10 ml PO Q4H PRN #1 liquid 10/12/17 Unknown Rx [Mucinex Yxdb-Dzk-Idgbwdbeel Lq] Azithromycin [Zithromax Z-NICOLASA] 250 mg PO DAILY #6 tablet 02/11/18 Unknown Rx Benzonatate [Tessalon Perle] 100 mg PO Q6H PRN #20 capsule 02/11/18 Unknown Rx Ibuprofen [Motrin] 600 mg PO Q8H PRN #30 tablet 02/11/18 Unknown Rx Nystas/Diphen/Xyl Visc/Mylanta 15 ml MM Q4H PRN 10 Days ml 02/11/18 Unknown Rx [Magic Mouthwash] Acetaminophen 500 mg PO Q6H PRN #30 tablet 02/20/18 Unknown Rx traMADol [Ultram] 50 mg PO Q6HR PRN #12 tablet 02/22/18 Unknown Rx Allergies Allergy/AdvReac Type Severity Reaction Status Date / Time pineapple [Pineapple] Allergy Mild Itching Verified 02/22/18 10:41 coconut Allergy Severe Swelling Uncoded 03/13/14 21:37 ED Review of Systems ROS: Stated complaint: ABD PAIN/BLEEDING/PREG. Other details as noted in HPI Constitutional: denies: chills, fever Eyes: denies: eye pain, eye discharge, vision change ENT: denies: ear pain, throat pain Respiratory: denies: cough, shortness of breath, wheezing Cardiovascular: denies: chest pain, palpitations Endocrine: no symptoms reported Gastrointestinal: denies: abdominal pain, nausea, diarrhea Genitourinary: denies: urgency, dysuria, discharge Musculoskeletal: denies: back pain, joint swelling, arthralgia Skin: denies: rash, lesions Neurological: denies: headache, weakness, paresthesias Psychiatric: denies: anxiety, depression Hematological/Lymphatic: denies: easy bleeding, easy bruising ED Past Medical Hx - Past Medical History Hx Congestive Heart Failure: No Hx Diabetes: (gestational) Hx Deep Vein Thrombosis: No Hx Renal Disease: No Hx Sickle Cell Disease: No Hx Headaches / Migraines: Yes Hx Seizures: No Hx Asthma: Yes (prn meds 3 yrs ago) Hx COPD: No Additional medical history: heart murmur. anemia, pneumonia - Surgical History Additional Surgical History: on March, - Social History Smoking Status: Never Smoker Substance Use Type: None - Medications Home Medications: Home Medications Medication Instructions Recorded Confirmed Last Taken Type metroNIDAZOLE 0.75% [Vandazole 1 applicator VG QHS #5 tube 12/04/15 05/22/16 Rx 0.75% VAGINAL] Diphenhydramine HCl [Benadryl 25 mg PO Q8HR #15 tablet 12/31/15 05/22/16 11:00 Rx Allergy TAB] 1 Ferrous Sulfate [Feosol 325 MG tab] 325 mg PO BID #60 tablet 05/23/16 Unknown Rx HYDROcodone/APAP 5-325 [[place] 1 each PO Q6HR PRN #30 tablet 05/23/16 Unknown Rx 5/325] Vit Calc,Iron,Folic 1 each PO DAILY #30 tablet 05/23/16 Unknown Rx [ Vitamins] Ibuprofen [Motrin 800 MG tab] 800 mg PO Q8HR PRN #30 tablet 07/20/17 Unknown Rx Promethazine HCl [Phenergan SUPPOS] 25 mg PO Q8HR PRN #10 tab 07/20/17 Unknown Rx Sulfamethoxazole/Trimethoprim 1 each PO BID #14 tablet 07/20/17 Unknown Rx [Bactrim DS TAB] Famotidine [Pepcid] 20 mg PO BID PRN #30 tablet 10/12/17 Unknown Rx Ibuprofen [Motrin] 800 mg PO Q8HR PRN #30 tablet 10/12/17 Unknown Rx Ondansetron [Zofran Odt] 4 mg PO Q8HR PRN #20 tab.rapdis 10/12/17 Unknown Rx Oseltamivir [Tamiflu] 75 mg PO BID #10 cap 10/12/17 Unknown Rx Phenylephrine/Dm/Acetaminop/GG 10 ml PO Q4H PRN #1 liquid 10/12/17 Unknown Rx [Mucinex Mbdy-Uwi-Iicffkcuoe Lq] Azithromycin [Zithromax Z-NICOLASA] 250 mg PO DAILY #6 tablet 02/11/18 Unknown Rx Benzonatate [Tessalon Perle] 100 mg PO Q6H PRN #20 capsule 02/11/18 Unknown Rx Ibuprofen [Motrin] 600 mg PO Q8H PRN #30 tablet 02/11/18 Unknown Rx Nystas/Diphen/Xyl Visc/Mylanta 15 ml MM Q4H PRN 10 Days ml 02/11/18 Unknown Rx [Magic Mouthwash] Acetaminophen 500 mg PO Q6H PRN #30 tablet 02/20/18 Unknown Rx traMADol [Ultram] 50 mg PO Q6HR PRN #12 tablet 02/22/18 Unknown Rx ED Physical Exam - General Limitations: No Limitations General appearance: alert, in no apparent distress - Head Head exam: Present: atraumatic, normocephalic - Eye Eye exam: Present: normal appearance Pupils: Present: normal accommodation - ENT ENT exam: Present: normal exam, mucous membranes moist - Neck Neck exam: Present: normal inspection, full ROM. Absent: tenderness, meningismus - Respiratory Respiratory exam: Present: normal lung sounds bilaterally. Absent: respiratory distress, wheezes, rales, rhonchi, stridor - Cardiovascular Cardiovascular Exam: Present: regular rate, normal rhythm, normal heart sounds. Absent: irregular rhythm, systolic murmur, diastolic murmur, rubs, gallop - GI/Abdominal GI/Abdominal exam: Present: soft, normal bowel sounds. Absent: distended, tenderness, guarding, rebound, rigid, diminished bowel sounds - Expanded GI/Abdominal Exam Expanded GI/Abdominal exam: Absent: psoas sign, obturator sign, heel tap sign, Mclean's sign, Rovsing's sign, tenderness at Mcburney's Point, ascites - Rectal Rectal exam: Present: deferred - Extremities Exam Extremities exam: Present: normal inspection, full ROM, normal capillary refill - Back Exam Back exam: Present: normal inspection, full ROM - Neurological Exam Neurological exam: Present: alert, oriented X3, normal gait - Psychiatric Psychiatric exam: Present: normal affect, normal mood - Skin Skin exam: Present: warm, dry, intact, normal color. Absent: rash ED Course Vital Signs 02/21/18 02/21/18 12:42 19:11 Temperature 98.4 F 99.0 F Pulse Rate 94 H 87 Respiratory 17 16 Rate Blood Pressure 132/54 Blood Pressure 123/66 [Right] O2 Sat by Pulse 99 99 Oximetry - Reevaluation(s) Reevaluation #1: 02/21/18 18:54 Patient is speaking in full sentences with no signs of distress noted. ED Medical Decision Making - Lab Data Result diagrams: 02/21/18 16:38 02/21/18 16:38 - Medical Decision Making This is a 27-year-old female that presents with threatened miscarriage. Patient is stable and was examined by me. The HCG Qant has decreased to 10 from yesterday. US OB and transvaginal obtained and dictated by the radiologist. Patient is notified of the US report with no questions noted by the patient. PAtient was instructed to return to the ED or [facility] in 48 hours for a repeat of HCG rachele. Labs are within normal limits including H/H. Patient was referred to Follow-up with a [facility] doctor in 2 days or if symptoms worsen and continue return to emergency room as soon as possible. At time of discharge, the patient does not seem toxic or ill in appearance. No acute signs of distress noted. Patient agrees to discharge treatment plan of care. No further questions noted by the patient. Critical care attestation.: If time is entered above; I have spent that time in minutes in the direct care of this critically ill patient, excluding procedure time. ED Disposition Disposition: DC-01 TO HOME OR SELFCARE Is pt being admited?: No Does the pt Need Aspirin: No Condition: Stable Instructions: Threatened Miscarriage (ED) Additional Instructions: Return to the ED or OBGYN in 48 hours for a repeat of HCG quantitative test. Follow-up with a [facility] doctor in 2 days or if symptoms worsen and continue return to emergency room as soon as possible. Referrals: PRIMARY CARE, [Referring] - 3-5 Days KENISHA DIAS MD [Staff Physician] - 3-5 Days [facility] [Provider Group] - 3-5 Days [facility] [Outside] - 3-5 Days Forms: Work/School Release Form(ED) <BRANNON BOTELLO - Last Filed: 02/23/18 14:55> ED Medical Decision Making - Lab Data Result diagrams: 02/21/18 16:38 02/21/18 16:38 - Medical Decision Making Patient diagnoses likely miscarriage given decrease in hCG Quant and patient needs to follow-up with [facility] and not the ED however, patient was given discharge instructions to follow up here as well
--- NOTE | 2018-02-21 18:52 | Ultrasound Report ---
FINAL REPORT PROCEDURE: US OB TRANSVAGINAL TECHNIQUE: Real-time transvaginal sonography of the uterus, placenta, amniotic fluid, adnexa, and fetus was performed with image documentation. Measurements were obtained to determine age/size. M-mode Doppler was used to document heartbeat. CPT 99969 HISTORY: . Vaginal bleeding. COMPARISON: Transabdominal OB ultrasound performed earlier today. FINDINGS: The report for this exam was generated using images from both the transabdominal and the transvaginal OB ultrasound both of which were performed today. The endometrial stripe is thickened measuring 18.5 millimeter. I do not see a gestational sac pole or heartbeat. No uterine masses are identified. The uterus measures 9.4 x 5.2 x 6.0 centimeters. No free fluid is seen in the cul-de-sac. Right ovary is unremarkable measuring 2.8 x 2.3 x 1.8 centimeter. Left ovary is suboptimally visualized measuring 3.3 x 1.5 x 2.1 centimeter. IMPRESSION: The endometrial stripe is thickened. No intrauterine gestation is visualized. The ovaries show no gross abnormality. No abnormal adnexal masses are seen. Recommend following serial beta HCG levels and follow-up pelvic ultrasound if clinically indicated. Ectopic cannot be entirely excluded.
[2018-02-21 19:12] VITALS: BP 123/66
[2018-02-21 19:15] LABS: Bilirubin,Urine NEG (Negative); Blood,Urine LG (Negative); Color,Urine Yellow (Yellow); Mucus,Urine FEW /HPF; Protein,Urine <15 mg/dL mg/dL (Negative); Urobilinogen,Urine < 2.0 mg/dL (<2.0)
== END 2018-02-21 19:10 | disposition home or self-care (01) ==
LOC: ED 12:30
DX: O20.0 Threatened abortion (principal); Z3A.00 Weeks of gestation of pregnancy not specified
CPT/HCPCS: 36415; 76801; 76817; 80048; 81001; 84702; 84703; 85025; 86850; 86900; 86901

== ENCOUNTER 2018-02-22 10:28 | Emergency (ER) | payer OTHER ==
[2018-02-22 10:43] VITALS: BP 123/70
[2018-02-22 11:43] LABS: Basophils # (Auto) 0.1 K/mm3 (0.0-0.1); Basophils % (Auto) 0.7 % (0.0-1.8); Eosinophils # (Auto) 0.1 K/mm3 (0.0-0.4); Eosinophils % (Auto) 0.9 % (0.0-4.3); Hematocrit 35.1 % (30.3-42.9); Hemoglobin 11.5 gm/dl (10.1-14.3); Lymphocytes % (Auto) 23.6 % (13.4-35.0); Mean Corpuscular HGB Conc 33 % (30-34); Mean Corpuscular Hemoglobin 26 pg (28-32); Mean Corpuscular Volume 80 fl (79-97); Monocytes # (Auto) 0.6 K/mm3 (0.0-0.8); Monocytes % (Auto) 7.3 % (0.0-7.3); Platelet Count 329 K/mm3 (140-440); Red Blood Count 4.36 M/mm3 (3.65-5.03); Red Cell Distribution Width 17.9 % (13.2-15.2)
[2018-02-22] MEDS ORDERED: MOTRIN PO ONE (13:36)
--- NOTE | 2018-02-22 13:37 | Emergency Department Report ---
ED HPI - General Chief complaint: Vaginal Bleeding Stated complaint: POSS MISCARRIAGE/ABD/BACK PAIN Time Seen by Provider: 02/22/18 13:34 Source: patient Mode of arrival: Ambulatory Limitations: No Limitations - History of Present Illness Initial comments: This is a 27-year-old female nontoxic, well nourished in appearance, no acute signs of distress presents to the ED with c/o of vaginal bleeding x2 days. Patient is known to me and was seen by me yesterday with HCG count of 10. Patient stated vaginal bleeding occurred yesterday. Patient describes vaginal bleeding is still continuing. Patient denies any following up with OBGYN as I instructed patient to. Patient denies any abdominal pain, back pain, fever, chills, nausea, vomiting, headache, stiff neck, numbness or tingling. Patient also stated intermittent cramping in the abdominal area. The patient denies any allergies or significant past medical history. MD Complaint: vaginal bleeding -: days(s) (2) Radiation: none Severity scale (0 -10): 0 Consistency: constant Improves with: none Worsens with: none Associated symptoms: vaginal bleeding. denies: nausea/vomiting, vaginal discharge, abdominal pain, dysuria, headache, vision changes, malaise, dysparuenia, rash, seizure, shortness of breath, syncope, weakness Vaginal bleeding: light Pre-aman care: none - Related Data Previous Rx's Medication Instructions Recorded Last Taken Type metroNIDAZOLE 0.75% [Vandazole 1 applicator VG QHS #5 tube 12/04/15 04/30/16 Rx 0.75% VAGINAL] Diphenhydramine HCl [Benadryl 25 mg PO Q8HR #15 tablet 12/31/15 04/30/16 11:00 Rx Allergy TAB] 1 Ferrous Sulfate [Feosol 325 MG tab] 325 mg PO BID #60 tablet 05/23/16 Unknown Rx HYDROcodone/APAP 5-325 [[place] 1 each PO Q6HR PRN #30 tablet 05/23/16 Unknown Rx 5/325] Vit Calc,Iron,Folic 1 each PO DAILY #30 tablet 05/23/16 Unknown Rx [ Vitamins] Ibuprofen [Motrin 800 MG tab] 800 mg PO Q8HR PRN #30 tablet 07/20/17 Unknown Rx Promethazine HCl [Phenergan SUPPOS] 25 mg PO Q8HR PRN #10 tab 07/20/17 Unknown Rx Sulfamethoxazole/Trimethoprim 1 each PO BID #14 tablet 07/20/17 Unknown Rx [Bactrim DS TAB] Famotidine [Pepcid] 20 mg PO BID PRN #30 tablet 10/12/17 Unknown Rx Ibuprofen [Motrin] 800 mg PO Q8HR PRN #30 tablet 10/12/17 Unknown Rx Ondansetron [Zofran Odt] 4 mg PO Q8HR PRN #20 tab.rapdis 10/12/17 Unknown Rx Oseltamivir [Tamiflu] 75 mg PO BID #10 cap 10/12/17 Unknown Rx Phenylephrine/Dm/Acetaminop/GG 10 ml PO Q4H PRN #1 liquid 10/12/17 Unknown Rx [Mucinex Pgur-Cxw-Sstiwsdrha Lq] Azithromycin [Zithromax Z-NICOLASA] 250 mg PO DAILY #6 tablet 02/11/18 Unknown Rx Benzonatate [Tessalon Perle] 100 mg PO Q6H PRN #20 capsule 02/11/18 Unknown Rx Ibuprofen [Motrin] 600 mg PO Q8H PRN #30 tablet 02/11/18 Unknown Rx Nystas/Diphen/Xyl Visc/Mylanta 15 ml MM Q4H PRN 10 Days ml 02/11/18 Unknown Rx [Magic Mouthwash] Acetaminophen 500 mg PO Q6H PRN #30 tablet 02/20/18 Unknown Rx traMADol [Ultram] 50 mg PO Q6HR PRN #12 tablet 02/22/18 Unknown Rx Allergies Allergy/AdvReac Type Severity Reaction Status Date / Time pineapple [Pineapple] Allergy Mild Itching Verified 02/22/18 10:41 coconut Allergy Severe Swelling Uncoded 03/13/14 21:37 ED Review of Systems ROS: Stated complaint: POSS MISCARRIAGE/ABD/BACK PAIN Other details as noted in HPI Constitutional: denies: chills, fever Eyes: denies: eye pain, eye discharge, vision change ENT: denies: ear pain, throat pain Respiratory: denies: cough, shortness of breath, wheezing Cardiovascular: denies: chest pain, palpitations Endocrine: no symptoms reported Gastrointestinal: denies: abdominal pain, nausea, diarrhea Genitourinary: denies: urgency, dysuria, discharge Musculoskeletal: denies: back pain, joint swelling, arthralgia Skin: denies: rash, lesions Neurological: denies: headache, weakness, paresthesias Psychiatric: denies: anxiety, depression Hematological/Lymphatic: denies: easy bleeding, easy bruising ED Past Medical Hx - Past Medical History Hx Congestive Heart Failure: No Hx Diabetes: (gestational) Hx Deep Vein Thrombosis: No Hx Renal Disease: No Hx Sickle Cell Disease: No Hx Headaches / Migraines: Yes Hx Seizures: No Hx Asthma: Yes (prn meds 3 yrs ago) Hx COPD: No Additional medical history: heart murmur. anemia, pneumonia - Surgical History Additional Surgical History: on March, - Social History Smoking Status: Never Smoker Substance Use Type: None - Medications Home Medications: Home Medications Medication Instructions Recorded Confirmed Last Taken Type metroNIDAZOLE 0.75% [Vandazole 1 applicator VG QHS #5 tube 12/04/15 05/22/16 Rx 0.75% VAGINAL] Diphenhydramine HCl [Benadryl 25 mg PO Q8HR #15 tablet 12/31/15 05/22/16 11:00 Rx Allergy TAB] 1 Ferrous Sulfate [Feosol 325 MG tab] 325 mg PO BID #60 tablet 05/23/16 Unknown Rx HYDROcodone/APAP 5-325 [[place] 1 each PO Q6HR PRN #30 tablet 05/23/16 Unknown Rx 5/325] Vit Calc,Iron,Folic 1 each PO DAILY #30 tablet 05/23/16 Unknown Rx [ Vitamins] Ibuprofen [Motrin 800 MG tab] 800 mg PO Q8HR PRN #30 tablet 07/20/17 Unknown Rx Promethazine HCl [Phenergan SUPPOS] 25 mg PO Q8HR PRN #10 tab 07/20/17 Unknown Rx Sulfamethoxazole/Trimethoprim 1 each PO BID #14 tablet 07/20/17 Unknown Rx [Bactrim DS TAB] Famotidine [Pepcid] 20 mg PO BID PRN #30 tablet 10/12/17 Unknown Rx Ibuprofen [Motrin] 800 mg PO Q8HR PRN #30 tablet 10/12/17 Unknown Rx Ondansetron [Zofran Odt] 4 mg PO Q8HR PRN #20 tab.rapdis 10/12/17 Unknown Rx Oseltamivir [Tamiflu] 75 mg PO BID #10 cap 10/12/17 Unknown Rx Phenylephrine/Dm/Acetaminop/GG 10 ml PO Q4H PRN #1 liquid 10/12/17 Unknown Rx [Mucinex Llaj-Ijg-Fphvdqnnio Lq] Azithromycin [Zithromax Z-NICOLASA] 250 mg PO DAILY #6 tablet 02/11/18 Unknown Rx Benzonatate [Tessalon Perle] 100 mg PO Q6H PRN #20 capsule 02/11/18 Unknown Rx Ibuprofen [Motrin] 600 mg PO Q8H PRN #30 tablet 02/11/18 Unknown Rx Nystas/Diphen/Xyl Visc/Mylanta 15 ml MM Q4H PRN 10 Days ml 02/11/18 Unknown Rx [Magic Mouthwash] Acetaminophen 500 mg PO Q6H PRN #30 tablet 02/20/18 Unknown Rx traMADol [Ultram] 50 mg PO Q6HR PRN #12 tablet 02/22/18 Unknown Rx ED Physical Exam - General Limitations: No Limitations General appearance: alert, in no apparent distress - Head Head exam: Present: atraumatic, normocephalic - Eye Eye exam: Present: normal appearance Pupils: Present: normal accommodation - ENT ENT exam: Present: normal exam, mucous membranes moist - Neck Neck exam: Present: normal inspection, full ROM. Absent: tenderness, meningismus - Respiratory Respiratory exam: Present: normal lung sounds bilaterally. Absent: respiratory distress, wheezes, rales, rhonchi, stridor, chest wall tenderness, accessory muscle use, decreased breath sounds, prolonged expiratory - Cardiovascular Cardiovascular Exam: Present: regular rate, normal rhythm, normal heart sounds. Absent: bradycardia, tachycardia, irregular rhythm, systolic murmur, diastolic murmur, rubs, gallop - GI/Abdominal GI/Abdominal exam: Present: soft, normal bowel sounds. Absent: distended, tenderness, guarding, rebound, rigid, diminished bowel sounds - Expanded GI/Abdominal Exam Expanded GI/Abdominal exam: Absent: psoas sign, obturator sign, heel tap sign, Mclean's sign, Rovsing's sign, tenderness at Mcburney's Point, ascites - Rectal Rectal exam: Present: deferred - Extremities Exam Extremities exam: Present: normal inspection, full ROM, normal capillary refill - Back Exam Back exam: Present: normal inspection, full ROM. Absent: tenderness, CVA tenderness (R), CVA tenderness (L), muscle spasm, paraspinal tenderness, vertebral tenderness, rash noted - Neurological Exam Neurological exam: Present: alert, oriented X3, normal gait - Psychiatric Psychiatric exam: Present: normal affect, normal mood - Skin Skin exam: Present: warm, dry, intact, normal color. Absent: rash ED Course Vital Signs 02/22/18 10:41 Temperature 98.7 F Pulse Rate 84 Respiratory 20 Rate Blood Pressure 123/70 O2 Sat by Pulse 100 Oximetry - Reevaluation(s) Reevaluation #1: 02/22/18 13:40 Patient is speaking in full sentences with no signs of distress noted. ED Medical Decision Making - Lab Data Result diagrams: 02/22/18 10:54 - Medical Decision Making This is a 27-year-old female that presents with threatened miscarriage. Patient is stable and was examined by me. The HCG Qant has decreased to 5 from yesterday. US OB and transvaginal obtained yesterday and dictated by the radiologist with no IUP. Patient is notified of the US report with no questions noted by the patient. PAtient was instructed to return to the ED or [facility] in 48 hours for a repeat of HCG rachele. Labs are within normal limits including H/ H. Patient was referred to Follow-up with a [facility] doctor in 2 days or if symptoms worsen and continue return to emergency room as soon as possible. At time of discharge, the patient does not seem toxic or ill in appearance. No acute signs of distress noted. Patient agrees to discharge treatment plan of care. No further questions noted by the patient. Critical care attestation.: If time is entered above; I have spent that time in minutes in the direct care of this critically ill patient, excluding procedure time. ED Disposition Clinical Impression: Threatened miscarriage Disposition: DC-01 TO HOME OR SELFCARE Is pt being admited?: No Does the pt Need Aspirin: No Condition: Stable Instructions: Tramadol (By mouth), Threatened Miscarriage (ED) Additional Instructions: Return to the ED or OBGYN in 48 hours for a repeat of HCG quantitative test. Follow-up with a [facility] doctor in 2 days or if symptoms worsen and continue return to emergency room as soon as possible. Prescriptions: traMADol [Ultram] 50 mg PO Q6HR PRN #12 tablet PRN Reason: Pain Referrals: PRIMARY CARE, [Primary Care Provider] - 3-5 Days KENISHA DIAS MD [Staff Physician] - 3-5 Days [facility] [Provider Group] - 3-5 Days [facility] [Outside] - 3-5 Days [facility] [Outside] - 3-5 Days Forms: Work/School Release Form(ED)
== END 2018-02-22 13:58 | disposition home or self-care (01) ==
LOC: ED 10:28
DX: O20.0 Threatened abortion (principal); Z3A.01 Less than 8 weeks gestation of pregnancy; J45.909 Unspecified asthma, uncomplicated; Z86.2 Personal history of diseases of the blood and blood-forming organs and certain disorders involving the immune mechanism; Z87.01 Personal history of pneumonia (recurrent); Z91.018 Allergy to other foods
CPT/HCPCS: 36415; 84702; 85025; 86850; 86900; 86901; 99283

== ENCOUNTER 2018-03-19 07:04 | Emergency (ER) | payer OTHER ==
[2018-03-19 07:19] VITALS: BP 120/70
[2018-03-19] MEDS ORDERED: DUONEB *Not for PRN Use IH ONE (08:34)
--- NOTE | 2018-03-19 08:37 | Emergency Department Report ---
- General Chief Complaint: Upper Respiratory Infection Stated Complaint: URI SX Time Seen by Provider: 03/19/18 08:33 Source: patient Mode of arrival: Ambulatory Limitations: No Limitations - History of Present Illness Initial Comments: 27-year-old female past medical history asthma, GERD, pneumonia, anemia presents with complaint of 4 days of persistent cough and intermittent shortness of breath. Denies any pleuritic chest pain nausea fever or chills dysuria hematuria or increased urinary frequency. Patient is fully lucid. Awake alert and oriented 3 speaking in full sentences. States she gets running sensation in back of throat after coughing fits. States that this is what she felt like when she developed a pneumonia over a month ago. MD Complaint: cough, nasal congestion Onset/Timin -: days(s) Severity: moderate Associated Symptoms: cough - Related Data Previous Rx's Medication Instructions Recorded Last Taken Type metroNIDAZOLE 0.75% [Vandazole 1 applicator VG QHS #5 tube 12/04/15 04/30/16 Rx 0.75% VAGINAL] Diphenhydramine HCl [Benadryl 25 mg PO Q8HR #15 tablet 12/31/15 04/30/16 11:00 Rx Allergy TAB] 1 Ferrous Sulfate [Feosol 325 MG tab] 325 mg PO BID #60 tablet 05/23/16 Unknown Rx HYDROcodone/APAP 5-325 [[place] 1 each PO Q6HR PRN #30 tablet 05/23/16 Unknown Rx 5/325] Vit Calc,Iron,Folic 1 each PO DAILY #30 tablet 05/23/16 Unknown Rx [ Vitamins] Ibuprofen [Motrin 800 MG tab] 800 mg PO Q8HR PRN #30 tablet 07/20/17 Unknown Rx Promethazine HCl [Phenergan SUPPOS] 25 mg PO Q8HR PRN #10 tab 07/20/17 Unknown Rx Sulfamethoxazole/Trimethoprim 1 each PO BID #14 tablet 07/20/17 Unknown Rx [Bactrim DS TAB] Famotidine [Pepcid] 20 mg PO BID PRN #30 tablet 10/12/17 Unknown Rx Ibuprofen [Motrin] 800 mg PO Q8HR PRN #30 tablet 10/12/17 Unknown Rx Ondansetron [Zofran Odt] 4 mg PO Q8HR PRN #20 tab.rapdis 10/12/17 Unknown Rx Oseltamivir [Tamiflu] 75 mg PO BID #10 cap 10/12/17 Unknown Rx Phenylephrine/Dm/Acetaminop/GG 10 ml PO Q4H PRN #1 liquid 10/12/17 Unknown Rx [Mucinex Czpk-Jez-Kznvdmfadl Lq] Azithromycin [Zithromax Z-NICOLASA] 250 mg PO DAILY #6 tablet 02/11/18 Unknown Rx Benzonatate [Tessalon Perle] 100 mg PO Q6H PRN #20 capsule 02/11/18 Unknown Rx Ibuprofen [Motrin] 600 mg PO Q8H PRN #30 tablet 02/11/18 Unknown Rx Nystas/Diphen/Xyl Visc/Mylanta 15 ml MM Q4H PRN 10 Days ml 02/11/18 Unknown Rx [Magic Mouthwash] Acetaminophen 500 mg PO Q6H PRN #30 tablet 02/20/18 Unknown Rx traMADol [Ultram] 50 mg PO Q6HR PRN #12 tablet 02/22/18 Unknown Rx Acetaminophen [Acetaminophen TAB] 500 mg PO Q6HR PRN #25 tablet 03/19/18 Unknown Rx Albuterol Sulfate [Ventolin Hfa] 1 puff IH Q4H PRN #1 hfa.aer.ad 03/19/18 Unknown Rx Brompheniramine/Pseudoephed/Dm 10 ml PO Q6H PRN #1 syrup 03/19/18 Unknown Rx [Bromfed Dm Cough Syrup] Dextromethorphan/Benzocaine 1 each PO Q4H PRN #1 box 03/19/18 Unknown Rx [Cepacol Sorethroat-Cough Lissa] Famotidine [Pepcid] 20 mg PO BID PRN #30 tablet 03/19/18 Unknown Rx Allergies Allergy/AdvReac Type Severity Reaction Status Date / Time pineapple [Pineapple] Allergy Mild Itching Verified 02/22/18 10:41 coconut Allergy Severe Swelling Uncoded 03/13/14 21:37 ED Review of Systems ROS: Stated complaint: URI SX Other details as noted in HPI Constitutional: denies: chills, fever Eyes: denies: eye pain, eye discharge, vision change ENT: denies: ear pain, throat pain Respiratory: cough. denies: shortness of breath, wheezing Cardiovascular: denies: chest pain, palpitations Endocrine: no symptoms reported Gastrointestinal: denies: abdominal pain, nausea, diarrhea Genitourinary: denies: urgency, dysuria, discharge Musculoskeletal: denies: back pain, joint swelling, arthralgia Skin: denies: rash, lesions Neurological: denies: headache, weakness, paresthesias Psychiatric: denies: anxiety, depression Hematological/Lymphatic: denies: easy bleeding, easy bruising ED Past Medical Hx - Past Medical History Previous Medical History?: Yes Hx Congestive Heart Failure: No Hx Diabetes: (gestational) Hx Deep Vein Thrombosis: No Hx Renal Disease: No Hx Sickle Cell Disease: No Hx Headaches / Migraines: Yes Hx Seizures: No Hx Asthma: Yes (prn meds 3 yrs ago) Hx COPD: No Additional medical history: heart murmur. anemia, pneumonia - Surgical History Past Surgical History?: Yes Additional Surgical History: on March, - Social History Smoking Status: Never Smoker Substance Use Type: Non Opiate Pain, Other - Medications Home Medications: Home Medications Medication Instructions Recorded Confirmed Last Taken Type metroNIDAZOLE 0.75% [Vandazole 1 applicator VG QHS #5 tube 12/04/15 05/22/16 Rx 0.75% VAGINAL] Diphenhydramine HCl [Benadryl 25 mg PO Q8HR #15 tablet 12/31/15 05/22/16 11:00 Rx Allergy TAB] 1 Ferrous Sulfate [Feosol 325 MG tab] 325 mg PO BID #60 tablet 05/23/16 Unknown Rx HYDROcodone/APAP 5-325 [[place] 1 each PO Q6HR PRN #30 tablet 05/23/16 Unknown Rx 5/325] Vit Calc,Iron,Folic 1 each PO DAILY #30 tablet 05/23/16 Unknown Rx [ Vitamins] Ibuprofen [Motrin 800 MG tab] 800 mg PO Q8HR PRN #30 tablet 07/20/17 Unknown Rx Promethazine HCl [Phenergan SUPPOS] 25 mg PO Q8HR PRN #10 tab 07/20/17 Unknown Rx Sulfamethoxazole/Trimethoprim 1 each PO BID #14 tablet 07/20/17 Unknown Rx [Bactrim DS TAB] Famotidine [Pepcid] 20 mg PO BID PRN #30 tablet 10/12/17 Unknown Rx Ibuprofen [Motrin] 800 mg PO Q8HR PRN #30 tablet 10/12/17 Unknown Rx Ondansetron [Zofran Odt] 4 mg PO Q8HR PRN #20 tab.rapdis 10/12/17 Unknown Rx Oseltamivir [Tamiflu] 75 mg PO BID #10 cap 10/12/17 Unknown Rx Phenylephrine/Dm/Acetaminop/GG 10 ml PO Q4H PRN #1 liquid 10/12/17 Unknown Rx [Mucinex Dmlv-Jdc-Uuekutxqdv Lq] Azithromycin [Zithromax Z-NICOLASA] 250 mg PO DAILY #6 tablet 02/11/18 Unknown Rx Benzonatate [Tessalon Perle] 100 mg PO Q6H PRN #20 capsule 02/11/18 Unknown Rx Ibuprofen [Motrin] 600 mg PO Q8H PRN #30 tablet 02/11/18 Unknown Rx Nystas/Diphen/Xyl Visc/Mylanta 15 ml MM Q4H PRN 10 Days ml 02/11/18 Unknown Rx [Magic Mouthwash] Acetaminophen 500 mg PO Q6H PRN #30 tablet 02/20/18 Unknown Rx traMADol [Ultram] 50 mg PO Q6HR PRN #12 tablet 02/22/18 Unknown Rx Acetaminophen [Acetaminophen TAB] 500 mg PO Q6HR PRN #25 tablet 03/19/18 Unknown Rx Albuterol Sulfate [Ventolin Hfa] 1 puff IH Q4H PRN #1 hfa.aer.ad 03/19/18 Unknown Rx Brompheniramine/Pseudoephed/Dm 10 ml PO Q6H PRN #1 syrup 03/19/18 Unknown Rx [Bromfed Dm Cough Syrup] Dextromethorphan/Benzocaine 1 each PO Q4H PRN #1 box 03/19/18 Unknown Rx [Cepacol Sorethroat-Cough Lissa] Famotidine [Pepcid] 20 mg PO BID PRN #30 tablet 03/19/18 Unknown Rx ED Physical Exam - General Limitations: No Limitations General appearance: alert, in no apparent distress - Head Head exam: Present: atraumatic, normocephalic - Eye Eye exam: Present: normal appearance, PERRL, EOMI - ENT ENT exam: Present: mucous membranes moist - Expanded ENT Exam Expanded Throat exam: Positive: normal inspection (no tonsillar exudates, uvula is midline.) - Neck Neck exam: Present: normal inspection - Respiratory Respiratory exam: Present: normal lung sounds bilaterally (lungs clear to auscultation bilaterally). Absent: respiratory distress - Cardiovascular Cardiovascular Exam: Present: regular rate, normal rhythm. Absent: systolic murmur, diastolic murmur, rubs, gallop - GI/Abdominal GI/Abdominal exam: Present: soft, normal bowel sounds - Extremities Exam Extremities exam: Present: normal inspection - Back Exam Back exam: Present: normal inspection - Neurological Exam Neurological exam: Present: alert, oriented X3 - Psychiatric Psychiatric exam: Present: normal affect, normal mood - Skin Skin exam: Present: warm, dry, intact, normal color. Absent: rash ED Course Vital Signs 03/19/18 07:14 Temperature 98.5 F Pulse Rate 84 Respiratory 14 Rate Blood Pressure 120/70 O2 Sat by Pulse 98 Oximetry ED Medical Decision Making - Medical Decision Making A/P: Cough, GERD 1-x-ray unremarkable, no consolidations 2-vital signs stable 3-throat lozenges, albuterol inhaler, Bromfed, Pepcid 4- follow-up with primary care doctor Critical care attestation.: If time is entered above; I have spent that time in minutes in the direct care of this critically ill patient, excluding procedure time. ED Disposition Clinical Impression: Cough Disposition: DC-01 TO HOME OR SELFCARE Is pt being admited?: No Does the pt Need Aspirin: No Condition: Stable Instructions: Cold Symptoms (ED), Antitussives (By mouth) Prescriptions: Acetaminophen [Acetaminophen TAB] 500 mg PO Q6HR PRN #25 tablet PRN Reason: Pain Albuterol Sulfate [Ventolin Hfa] 1 puff IH Q4H PRN #1 hfa.aer.ad PRN Reason: Cough Brompheniramine/Pseudoephed/Dm [Bromfed Dm Cough Syrup] 10 ml PO Q6H PRN #1 syrup PRN Reason: Cough Dextromethorphan/Benzocaine [Cepacol Sorethroat-Cough Lissa] 1 each PO Q4H PRN #1 box PRN Reason: Sore Throat Famotidine [Pepcid] 20 mg PO BID PRN #30 tablet PRN Reason: Cough Referrals: [facility] [Provider Group] - 3-5 Days Forms: Work/School Release Form(ED) Time of Disposition: 09:24
[2018-03-19 08:47] LABS: HCG Qualitative,Urine Negative (Negative)
--- NOTE | 2018-03-19 09:09 | XRay Report ---
CHEST 2 VIEWS INDICATION: Persistent cough. COMPARISON: 02/20/2018. FINDINGS: PA and lateral chest radiographs demonstrate normal cardiomediastinal silhouette. Clear lungs. Slight mid to lower thoracic spine degenerative spurring. Abdomen shielded. CONCLUSION: No acute disease in the chest. Thank you for the opportunity to participate in this patient's care.
[2018-03-19] MEDS ORDERED: PEPCID PO ONE (09:22)
[2018-03-19] MEDS ORDERED: ALUM-MAG HYDROX-SIMETH 200-200-20MG/5ML PO ONE (09:22)
[2018-03-19] MEDS ORDERED: LIDOCAINE VISCOUS 2% PO ONE (09:22)
== END 2018-03-19 09:33 | disposition home or self-care (01) ==
LOC: ED 07:04
DX: R05 Cough (principal); R06.02 Shortness of breath; R09.81 Nasal congestion; J45.909 Unspecified asthma, uncomplicated; G43.909 Migraine, unspecified, not intractable, without status migrainosus; Z86.2 Personal history of diseases of the blood and blood-forming organs and certain disorders involving the immune mechanism; Z91.018 Allergy to other foods
CPT/HCPCS: 71046; 81025; 94640

== ENCOUNTER 2018-06-06 00:21 | Emergency (ER) | payer SELFPAY ==
[2018-06-06 01:33] LABS: Basophils # (Auto) 0.1 K/mm3 (0.0-0.1); Basophils % (Auto) 0.8 % (0.0-1.8); Eosinophils # (Auto) 0.1 K/mm3 (0.0-0.4); Eosinophils % (Auto) 1.4 % (0.0-4.3); Hematocrit 34.3 % (30.3-42.9); Hemoglobin 11.1 gm/dl (10.1-14.3); Lymphocytes # (Auto) 3.4 K/mm3 (1.2-5.4); Lymphocytes % (Auto) 33.6 % (13.4-35.0); Mean Corpuscular HGB Conc 32 % (30-34); Mean Corpuscular Hemoglobin 27 pg (28-32); Mean Corpuscular Volume 84 fl (79-97); Monocytes # (Auto) 0.6 K/mm3 (0.0-0.8); Monocytes % (Auto) 5.8 % (0.0-7.3); Platelet Count 338 K/mm3 (140-440); Red Blood Count 4.08 M/mm3 (3.65-5.03); Red Cell Distribution Width 15.9 % (13.2-15.2)
[2018-06-06 01:46] LABS: BUN/Creatinine Ratio 20; Blood Urea Nitrogen 10 mg/dL (7-17); Calcium 9.1 mg/dL (8.4-10.2); Hemolysis Index 8
[2018-06-06] MEDS ORDERED: NORCO 5/325 PO ONE (03:52)
--- NOTE | 2018-06-06 04:32 | XRay Report ---
FINAL REPORT PROCEDURE: XR ABDOMEN 2V TECHNIQUE: Abdominal series, including supine and upright AP views. HISTORY: Abd pain COMPARISON: No prior studies are available for comparison. FINDINGS: Bowel gas pattern:Nonobstructive . Masses or calcifications:None . Bony structures:No significant abnormality . Pneumoperitoneum:None . Other:No significant findings . IMPRESSION: No acute abnormality.
--- NOTE | 2018-06-06 05:04 | Ultrasound Report ---
FINAL REPORT PROCEDURE: US transabdominal TECHNIQUE: Real-time transabdominal sonography in multiple planes of the pelvis was performed with image documentation. Grayscale, color flow Doppler imaging and velocity spectral waveform analysis of the ovaries was employed (duplex imaging). HISTORY: pelvic pain COMPARISON: No prior studies are available for comparison. FINDINGS: UTERUS Size: 8.6 x 4.6 x 5.5 cm. Endometrial thickness: 4.7 mm. Orientation: anteverted. Cervix: Normal. Fibroids/masses: None. RIGHT Ovary: 3.7 x 2.5 x 2.3 cm. Appearance: Normal. Doppler images: Normal spectral waveforms and color flow. The systolic and diastolic velocities are within normal limits. LEFT Ovary: 3.9 x 2.5 x 2.6 cm. Appearance: Normal. Doppler images: Normal spectral waveforms and color flow. The systolic and diastolic velocities are within normal limits. Pelvic fluid: Minimal. IMPRESSION: Normal uterus and ovaries. There is no evidence of ovarian torsion. There is minimal free pelvic fluid.
--- NOTE | 2018-06-06 05:04 | Ultrasound Report ---
FINAL REPORT PROCEDURE: US TRANSVAGINAL TECHNIQUE: Real-time transvaginal sonography in multiple planes of the pelvis was performed with image documentation. Grayscale, color flow Doppler imaging and velocity spectral waveform analysis of the ovaries was employed (duplex imaging). CPT 53302 and [id number] HISTORY: pelvic pain COMPARISON: No prior studies are available for comparison. FINDINGS: UTERUS Size: 8.6 x 4.6 x 5.5 cm. Endometrial thickness: 4.7 mm. Orientation: anteverted. Cervix: Normal. Fibroids/masses: None. RIGHT Ovary: 3.7 x 2.5 x 2.3 cm. Appearance: Normal. Doppler images: Normal spectral waveforms and color flow. The systolic and diastolic velocities are within normal limits. LEFT Ovary: 3.9 x 2.5 x 2.6 cm. Appearance: Normal. Doppler images: Normal spectral waveforms and color flow. The systolic and diastolic velocities are within normal limits. Pelvic fluid: Minimal. IMPRESSION: Normal uterus and ovaries. There is no evidence of ovarian torsion. There is minimal free pelvic fluid.
[2018-06-06 05:13] LABS: Bilirubin,Urine NEG (Negative); Blood,Urine MOD (Negative); Color,Urine Yellow (Yellow); Mucus,Urine FEW /HPF; Urobilinogen,Urine < 2.0 mg/dL (<2.0)
[2018-06-06 05:16] LABS: RBC,Urine > 182.0 /HPF (0.0-6.0)
--- NOTE | 2018-06-06 06:03 | Emergency Department Report ---
HPI - General Chief Complaint: Vaginal Bleeding Time Seen by Provider: 06/06/18 03:32 - HPI HPI: 27-year-old female presents to the emergency department with complaint of vaginal bleeding has been going on since yesterday. She is nontender about 6 pads in one day. She has some lower abdominal, more like pelvic, cramping and discomfort with some radiation towards the back. She denies any fever, nausea, vomiting, vaginal discharge, dysuria. Patient says that her menstrual cycles have been off since she had a miscarriage back in February. Her MIL[facility]ARY PERSON[facility]EL SPECIALIST is Dr. Momo Hensley but she has not seen him regarding the symptoms. She has not taken anything for her symptoms prior to presentation. No recent travel or sick contacts at home. ED Past Medical Hx - Past Medical History Hx Congestive Heart Failure: No Hx Diabetes: (gestational) Hx Deep Vein Thrombosis: No Hx Renal Disease: No Hx Sickle Cell Disease: No Hx Headaches / Migraines: Yes Hx Seizures: No Hx Asthma: Yes (prn meds 3 yrs ago) Hx COPD: No Additional medical history: heart murmur, OBESITY. anemia, pneumonia - Surgical History Additional Surgical History: X 2 - Social History Smoking Status: Never Smoker Substance Use Type: None - Medications Home Medications: Home Medications Medication Instructions Recorded Confirmed Last Taken Type metroNIDAZOLE 0.75% [Vandazole 1 applicator VG QHS #5 tube 12/04/15 05/22/16 Rx 0.75% VAGINAL] Diphenhydramine HCl [Benadryl 25 mg PO Q8HR #15 tablet 12/31/15 05/22/16 11:00 Rx Allergy TAB] 1 Ferrous Sulfate [Feosol 325 MG tab] 325 mg PO BID #60 tablet 05/23/16 Unknown Rx HYDROcodone/APAP 5-325 [[place] 1 each PO Q6HR PRN #30 tablet 05/23/16 Unknown Rx 5/325] Vit Calc,Iron,Folic 1 each PO DAILY #30 tablet 05/23/16 Unknown Rx [ Vitamins] Ibuprofen [Motrin 800 MG tab] 800 mg PO Q8HR PRN #30 tablet 07/20/17 Unknown Rx Promethazine HCl [Phenergan SUPPOS] 25 mg PO Q8HR PRN #10 tab 07/20/17 Unknown Rx Sulfamethoxazole/Trimethoprim 1 each PO BID #14 tablet 07/20/17 Unknown Rx [Bactrim DS TAB] Famotidine [Pepcid] 20 mg PO BID PRN #30 tablet 10/12/17 Unknown Rx Ibuprofen [Motrin] 800 mg PO Q8HR PRN #30 tablet 10/12/17 Unknown Rx Ondansetron [Zofran Odt] 4 mg PO Q8HR PRN #20 tab.rapdis 10/12/17 Unknown Rx Oseltamivir [Tamiflu] 75 mg PO BID #10 cap 10/12/17 Unknown Rx Phenylephrine/Dm/Acetaminop/GG 10 ml PO Q4H PRN #1 liquid 10/12/17 Unknown Rx [Mucinex Ufdi-Dxx-Siobzmfjjk Lq] Azithromycin [Zithromax Z-NICOLASA] 250 mg PO DAILY #6 tablet 02/11/18 Unknown Rx Benzonatate [Tessalon Perle] 100 mg PO Q6H PRN #20 capsule 02/11/18 Unknown Rx Ibuprofen [Motrin] 600 mg PO Q8H PRN #30 tablet 02/11/18 Unknown Rx Nystas/Diphen/Xyl Visc/Mylanta 15 ml MM Q4H PRN 10 Days ml 02/11/18 Unknown Rx [Magic Mouthwash] Acetaminophen 500 mg PO Q6H PRN #30 tablet 02/20/18 Unknown Rx traMADol [Ultram] 50 mg PO Q6HR PRN #12 tablet 02/22/18 Unknown Rx Acetaminophen [Acetaminophen TAB] 500 mg PO Q6HR PRN #25 tablet 03/19/18 Unknown Rx Albuterol Sulfate [Ventolin Hfa] 1 puff IH Q4H PRN #1 hfa.aer.ad 03/19/18 Unknown Rx Brompheniramine/Pseudoephed/Dm 10 ml PO Q6H PRN #1 syrup 03/19/18 Unknown Rx [Bromfed Dm Cough Syrup] Dextromethorphan/Benzocaine 1 each PO Q4H PRN #1 box 03/19/18 Unknown Rx [Cepacol Sorethroat-Cough Lissa] Famotidine [Pepcid] 20 mg PO BID PRN #30 tablet 03/19/18 Unknown Rx ED Review of Systems ROS: Stated complaint: ABDOMINAL PAIN/HEAVY BLEEDING Other details as noted in HPI Comment: All other systems reviewed and negative Constitutional: denies: chills, fever Eyes: denies: eye pain, eye discharge, vision change ENT: denies: ear pain, throat pain Respiratory: denies: cough, shortness of breath, wheezing Cardiovascular: denies: chest pain, palpitations Gastrointestinal: abdominal pain. denies: nausea, vomiting Genitourinary: other (vaginal bleeding). denies: dysuria, discharge Musculoskeletal: back pain. denies: arthralgia Skin: denies: rash, lesions Neurological: denies: headache, weakness, paresthesias Physical Exam - Physical Exam Vital Signs: Vital Signs 06/06/18 06/06/18 06/06/18 00:19 00:49 03:10 Temperature 98.4 F 98.4 F Pulse Rate 98 H 89 67 Respiratory 18 18 21 Rate Blood Pressure 134/82 Blood Pressure 134/82 [Left] O2 Sat by Pulse 100 100 Oximetry 06/06/18 06/06/18 06/06/18 03:16 03:26 04:04 Temperature Pulse Rate 75 Respiratory 12 18 20 Rate Blood Pressure 122/57 Blood Pressure [Left] O2 Sat by Pulse 99 98 Oximetry Physical Exam: GENERAL: The patient is well-developed well-nourished. HENT: Normocephalic. Atraumatic. Patient has moist mucous membranes. EYES: Extraocular motions are intact. NECK: Supple. Trachea is midline. CHEST/LUNGS: Clear to auscultation. There is no respiratory distress noted. HEART/CARDIOVASCULAR: Regular. There is no tachycardia. There is no murmur. ABDOMEN: Abdomen is soft, nontender. Patient has normal bowel sounds. There is no abdominal distention. SKIN: Skin is warm and dry. NEURO: The patient is awake, alert, and oriented. The patient is cooperative. The patient has no focal neurologic deficits. The patient has normal speech. MUSCULOSKELETAL: There is no tenderness or deformity. There is no limitation range of motion. There is no evidence of acute injury. ED Course Vital Signs 06/06/18 06/06/18 06/06/18 00:19 00:49 03:10 Temperature 98.4 F 98.4 F Pulse Rate 98 H 89 67 Respiratory 18 18 21 Rate Blood Pressure 134/82 Blood Pressure 134/82 [Left] O2 Sat by Pulse 100 100 Oximetry 06/06/18 06/06/18 06/06/18 03:16 03:26 04:04 Temperature Pulse Rate 75 Respiratory 12 18 20 Rate Blood Pressure 122/57 Blood Pressure [Left] O2 Sat by Pulse 99 98 Oximetry ED Medical Decision Making - Lab Data Result diagrams: 06/06/18 01:04 06/06/18 01:04 - Radiology Data Radiology results: report reviewed, image reviewed interpreted by me: Abdominal x-ray shows nonspecific nonobstructive bowel gas PROCEDURE: US TRANSVAGINAL TECHNIQUE: Real-time transvaginal sonography in multiple planes of the pelvis was performed with image documentation. Grayscale, color flow Doppler imaging and velocity spectral waveform analysis of the ovaries was employed (duplex imaging). CPT 59645 and [id number] HISTORY: pelvic pain COMPARISON: No prior studies are available for comparison. FINDINGS: UTERUS Size: 8.6 x 4.6 x 5.5 cm. Endometrial thickness: 4.7 mm. Orientation: anteverted. Cervix: Normal. Fibroids/masses: None. RIGHT Ovary: 3.7 x 2.5 x 2.3 cm. Appearance: Normal. Doppler images: Normal spectral waveforms and color flow. The systolic and diastolic velocities are within normal limits. LEFT Ovary: 3.9 x 2.5 x 2.6 cm. Appearance: Normal. Doppler images: Normal spectral waveforms and color flow. The systolic and diastolic velocities are within normal limits. Pelvic fluid: Minimal. IMPRESSION: Normal uterus and ovaries. There is no evidence of ovarian torsion. There is minimal free pelvic fluid. Transcribed By: CO Dictated By: ROLA BAEZA MD Electronically Authenticated By: ROLA BAEZA MD Signed Date/Time: 06/06/18 0456 - Medical Decision Making Patient presents with some moderate to heavy vaginal bleeding since yesterday as well as some lower abdominal/pelvic cramping with some radiation towards the back. Vital signs stable throughout her ED course. On physical examination she does not appear to have any toxic or rigid abdomen. Abdominal x-ray shows nonspecific nonobstructive bowel gas. Transvaginal/pelvic ultrasound does not show any signs of torsion and otherwise is a normal examination. Labs are mostly unremarkable. There is hematuria seen but no urinary tract infection and this is most likely secondary to the vaginal bleeding. She appears safe for discharge home at this time. She has good follow-up with primary care and [employer]. She's been encouraged to return to the emergency Department with any worsening of her symptoms or any acute distress. She understands and agrees to the plan. - Differential Diagnosis fibroids, , UTI, malignancy Critical Care Time: No Critical care attestation.: If time is entered above; I have spent that time in minutes in the direct care of this critically ill patient, excluding procedure time. ED Disposition Clinical Impression: Dysfunctional uterine bleeding, Pelvic cramping Back pain Qualifiers: Back pain location: low back pain Chronicity: unspecified Back pain laterality : unspecified Sciatica presence: without sciatica Qualified Code(s): M54.5 - Low back pain Disposition: TO HOME OR SELFCARE Is pt being admited?: No Condition: Stable Instructions: Dysfunctional Uterine Bleeding (ED), Menorrhagia (ED), Abdominal Pain (ED) Additional Instructions: Please follow-up with your primary care physician and [employer]IST. Return to the emergency Department with any worsening of your symptoms or any acute distress. Referrals: PRIMARY MD SRAVAN [Primary Care Provider] - 2-3 Days WANDER HENSLEY MD [Staff Physician] - 2-3 Days Time of Disposition: 06:01
[2018-06-06 06:10] VITALS: BP 122/75
== END 2018-06-06 06:22 | disposition home or self-care (01) ==
LOC: ED 00:21
DX: N93.8 Other specified abnormal uterine and vaginal bleeding (principal); R10.2 Pelvic and perineal pain; M54.5 Low back pain; G43.909 Migraine, unspecified, not intractable, without status migrainosus; J45.909 Unspecified asthma, uncomplicated; Z86.2 Personal history of diseases of the blood and blood-forming organs and certain disorders involving the immune mechanism; Z91.018 Allergy to other foods
CPT/HCPCS: 36415; 74019; 76830; 80048; 81001; 84703; 85025; 86850; 86900; 86901; 93975

== ENCOUNTER 2018-08-09 14:12 | Emergency (ER) | payer OTHER ==
--- NOTE | 2018-08-09 15:20 | XRay Report ---
RIGHT ANKLE, 3 views: History: right ankle pain. Findings: Mild soft tissue swelling is identified. No acute osseous abnormality or joint pathology is identified. The fifth metatarsal base is intact. Impression: Soft tissue swelling. No acute osseous injury.
[2018-08-09] MEDS ORDERED: NORCO 5/325 PO ONE (16:23)
--- NOTE | 2018-08-09 16:28 | Emergency Department Report ---
ED Lower Extremity HPI - General Chief Complaint: Extremity Injury, Lower Stated Complaint: POSS (R) BROKEN ANKLE Time Seen by Provider: 08/09/18 16:17 Source: patient Mode of arrival: Wheelchair Limitations: No Limitations - History of Present Illness MD Complaint: ankle injury -: Sudden Injury: Ankle: Right Type of Injury: eversion Place: home Severity: moderate Improves With: nothing Worsens With: nothing Context: other (TWISTED ) - Related Data Previous Rx's Medication Instructions Recorded Last Taken Type Fluconazole [Diflucan TAB] 150 mg PO ONCE #1 tablet 08/09/18 Unknown Rx Naproxen [Naprosyn] 500 mg PO BID PRN #20 tablet 08/09/18 Unknown Rx Allergies Allergy/AdvReac Type Severity Reaction Status Date / Time pineapple [Pineapple] Allergy Mild Itching Verified 02/22/18 10:41 coconut Allergy Severe Swelling Uncoded 03/13/14 21:37 ED Review of Systems ROS: Stated complaint: POSS (R) BROKEN ANKLE Other details as noted in HPI Comment: All other systems reviewed and negative Constitutional: denies: chills Eyes: denies: eye pain ENT: denies: ear pain Respiratory: denies: orthopnea Cardiovascular: denies: palpitations Gastrointestinal: denies: abdominal pain Genitourinary: denies: urgency Musculoskeletal: other (R LAT ANKLE PAIN SP ROLLING ANKLE EARLIER TODAY). denies: back pain, joint swelling, arthralgia, myalgia Neurological: denies: headache, weakness Psychiatric: denies: anxiety, depression Hematological/Lymphatic: denies: easy bleeding ED Past Medical Hx - Past Medical History Hx Congestive Heart Failure: No Hx Diabetes: (gestational) Hx Deep Vein Thrombosis: No Hx Renal Disease: No Hx Sickle Cell Disease: No Hx Headaches / Migraines: Yes Hx Seizures: No Hx Asthma: Yes (prn meds 3 yrs ago) Hx COPD: No Additional medical history: heart murmur, OBESITY. anemia, pneumonia - Surgical History Past Surgical History?: Yes Additional Surgical History: X 2 - Family History Family history: no significant - Social History Smoking Status: Never Smoker Substance Use Type: None - Medications Home Medications: Home Medications Medication Instructions Recorded Confirmed Last Taken Type Fluconazole [Diflucan TAB] 150 mg PO ONCE #1 tablet 08/09/18 Unknown Rx Naproxen [Naprosyn] 500 mg PO BID PRN #20 tablet 08/09/18 Unknown Rx ED Physical Exam - General Limitations: No Limitations General appearance: alert - Head Head exam: Present: atraumatic - Eye Eye exam: Present: PERRL Pupils: Present: normal accommodation - ENT ENT exam: Present: mucous membranes moist - Neck Neck exam: Present: normal inspection - Respiratory Respiratory exam: Present: normal lung sounds bilaterally - Cardiovascular Cardiovascular Exam: Present: regular rate - GI/Abdominal GI/Abdominal exam: Present: soft - Rectal Rectal exam: Present: deferred - Extremities Exam Extremities exam: Present: normal capillary refill - Expanded Lower Extremity Exam Right Hip exam: Present: normal inspection Upper Leg exam: Present: normal inspection Knee exam: Present: normal inspection Lower Leg exam: Present: normal inspection Ankle exam: Present: tenderness (LATERAL R ANKLE), swelling. Absent: abrasion, laceration, ecchymosis, deformity, crepidus, dislocation, erythema Foot/Toe exam: Present: normal inspection Neuro vascular tendon exam: Present: no vascular compromise - Back Exam Back exam: Present: normal inspection - Neurological Exam Neurological exam: Present: alert, oriented X3 - Psychiatric Psychiatric exam: Present: normal affect, normal mood - Skin Skin exam: Present: warm, dry, intact, normal color. Absent: rash ED Course Vital Signs 08/09/18 14:28 Temperature 98.5 F Pulse Rate 80 Respiratory 18 Rate Blood Pressure 112/71 O2 Sat by Pulse 100 Oximetry ED Lower Extremity MDM - Radiology Data Radiology results: report reviewed, image reviewed - Medical Decision Making XRAY NEG - Differential Diagnosis ANKLE SPRAIN Critical care attestation.: If time is entered above; I have spent that time in minutes in the direct care of this critically ill patient, excluding procedure time. ED Disposition Clinical Impression: Ankle sprain Disposition: DC-01 TO HOME OR SELFCARE Is pt being admited?: No Does the pt Need Aspirin: No Condition: Stable Instructions: Ankle Sprain (ED) Additional Instructions: ICE REST ELEVATE CRUTCHES FOLLOW UP WITH ORTHO THIS WEEK TO BE SURE YOU ARE GETTING BETTER MOTRIN OR TYLENOL FOR PAIN Referrals: PRIMARY CARE, [Primary Care Provider] - 3-5 Days ARIS WESLEY MD [Staff Physician] - 3-5 Days Time of Disposition: 16:25
[2018-08-09 16:48] VITALS: BP 115/70
== END 2018-08-09 16:46 | disposition home or self-care (01) ==
LOC: ED 14:12
DX: S93.401A Sprain of unspecified ligament of right ankle, initial encounter (principal); G43.909 Migraine, unspecified, not intractable, without status migrainosus; J45.909 Unspecified asthma, uncomplicated; Z86.2 Personal history of diseases of the blood and blood-forming organs and certain disorders involving the immune mechanism; Z91.018 Allergy to other foods; Z87.01 Personal history of pneumonia (recurrent); X50.1XXA Overexertion from prolonged static or awkward postures, initial encounter; Y93.89 Activity, other specified; Y92.098 Other place in other non-institutional residence as the place of occurrence of the external cause; Y99.8 Other external cause status
CPT/HCPCS: 99283

== ENCOUNTER 2018-12-13 20:57 | Emergency (ER) | payer OTHER ==
[2018-12-13 22:17] LABS: Hematocrit 33.1 % (30.3-42.9); Hemoglobin 10.7 gm/dl (10.1-14.3); Mean Corpuscular HGB Conc 32 % (30-34); Mean Corpuscular Volume 80 fl (79-97); Platelet Count 371 K/mm3 (140-440); Red Blood Count 4.11 M/mm3 (3.65-5.03); Red Cell Distribution Width 15.8 % (13.2-15.2)
[2018-12-13 22:32] LABS: Alanine Aminotransferase 15 units/L (7-56); BUN/Creatinine Ratio 13; Blood Urea Nitrogen 8 mg/dL (7-17); Calcium 9.1 mg/dL (8.4-10.2); Hemolysis Index 6
[2018-12-13 23:04] LABS: Bilirubin,Urine NEG (Negative); Blood,Urine NEG (Negative); Color,Urine Yellow (Yellow); Mucus,Urine 2+ /HPF; Protein,Urine <15 mg/dL mg/dL (Negative)
[2018-12-14 01:22] VITALS: BP 112/74
--- NOTE | 2018-12-14 01:29 | Emergency Department Report ---
Vomiting/Diarrhea - HPI Chief Complaint: Abdominal Pain Stated Complaint: DIARRHEA/ABD PAIN Time Seen by Provider: 12/14/18 01:27 Duration: 1 week Severity: mild Nausea/Vomiting Severity: Moderate Diarrhea Severity: Mild Pain Location: LLQ Pain Severity: Mild Symptoms: Yes Watery Diarrhea, Yes Able to Tolerate Fluids, Yes Recent URI Symptoms, No Bloody diarrhea, No Fever, No Recent Unusual Foods, No Recent Untreated Water, No Recent use of Antibiotics, No Family w/ Similar Symptoms, No Contacts w/ Similar Symptoms, No Rash, No Hematuria Other History: This is a 28-year-old -[place] female who presents with multiple complaints. She reports diarrhea, abdominal pain and low back pain for 1 day. Patient reports abdominal pain as a cramping sensation that is intermittent. Nausea vomiting and diarrhea it's worse after eating or drinking. Currently patient has taken Pepto-Bismol and drinking brenda dony with minimal improvement of symptoms. Last menstrual period 11/11/2018, A1 miscarriage. She also complains of sore throat and increased discomfort with swallowing. Patient states her children have been sick. Patient denies chest pain, shortness of breath, frequency, urgency, dysuria, cough, fever, vaginal discharge or vaginal bleeding. ED Review of Systems ROS: Stated complaint: DIARRHEA/ABD PAIN Other details as noted in HPI Constitutional: denies: chills, fever ENT: throat pain. denies: ear pain Respiratory: denies: cough, shortness of breath, wheezing Cardiovascular: denies: chest pain, palpitations Gastrointestinal: abdominal pain, nausea, vomiting, diarrhea. denies: constipation, hematemesis, melena, hematochezia Genitourinary: denies: urgency, dysuria, discharge Skin: denies: rash, lesions Neurological: denies: headache, weakness, paresthesias Psychiatric: denies: anxiety, depression ED Past Medical Hx - Past Medical History Previous Medical History?: Yes Hx Congestive Heart Failure: No Hx Diabetes: (gestational) Hx Deep Vein Thrombosis: No Hx Renal Disease: No Hx Sickle Cell Disease: No Hx Headaches / Migraines: Yes Hx Seizures: No Hx Asthma: Yes (prn meds 3 yrs ago) Hx COPD: No Additional medical history: heart murmur, OBESITY. anemia, pneumonia - Surgical History Past Surgical History?: Yes Additional Surgical History: X 2 - Social History Smoking Status: Never Smoker Substance Use Type: None - Medications Home Medications: Home Medications Medication Instructions Recorded Confirmed Last Taken Type Fluconazole [Diflucan TAB] 150 mg PO ONCE #1 tablet 08/09/18 Unknown Rx Naproxen [Naprosyn] 500 mg PO BID PRN #20 tablet 08/09/18 Unknown Rx Ibuprofen [Motrin] 400 mg PO Q8H PRN #20 tablet 10/16/18 Unknown Rx Ondansetron [Zofran Odt] 4 mg PO Q8HR #20 tab.rapdis 10/16/18 Unknown Rx Ketorolac [Toradol] 10 mg PO Q6H PRN #20 tablet 11/14/18 Unknown Rx Dextromethorphan/Benzocaine 1 each PO Q2H PRN #14 lozenge 12/14/18 Unknown Rx [Cepacol Sorethroat-Cough Lissa] Loperamide HCl [Imodium A-D] 2 mg PO DAILY PRN #14 tablet 12/14/18 Unknown Rx Ondansetron [Zofran Odt] 4 mg PO Q8HR PRN #15 tab.rapdis 12/14/18 Unknown Rx methylPREDNISolone [Medrol] 4 mg PO DAILY #1 tab.ds.pk 12/14/18 Unknown Rx Vomiting Diarrhea Exam - Exam General: Vital signs noted. No distress. Alert and acting appropriately. HEENT: Yes Pharyngeal Erythema (erythematous and enlarged tonsils without exudate, uvula midline), Yes Moist Mucous Membranes, Yes Rhinorrhea (turbinates is mildly congested with clear discharge), No Pharyngeal Exudates, No Conjuctival Injection, No Frontal Tenderness, No Maxillary Tenderness Neck: No Adenopathy, No Rigidity Lungs: Yes Clear Lung Sounds, Yes Good Air Exchange, No Wheezes, No Stridor, No Cough, No Nasal Flaring, No Retractions, No Use of Accessory Muscles Heart exam: Regular: Yes, Murmur: No, Tachycardia: No Abdomen: Tenderness: No, Peritoneal Signs: No, Distention: No, Hyperactive Bowel sounds: No Skin exam: Rash: No, Edema: No, Normal turgor: Yes Neurologic: Alert and oriented, no deficits. Musculoskeletal: Unremarkable. ED Course Vital Signs 12/14/18 01:13 Temperature 98.5 F Pulse Rate 82 Respiratory 18 Rate Blood Pressure 112/74 O2 Sat by Pulse 100 Oximetry ED Medical Decision Making - Lab Data Result diagrams: 12/13/18 21:52 12/13/18 21:52 Lab Results 12/13/18 12/13/18 12/13/18 Range/Units 21:52 21:52 21:52 WBC 9.9 (4.5-11.0) K/mm3 RBC 4.11 (3.65-5.03) M/mm3 Hgb 10.7 (10.1-14.3) gm/dl Hct 33.1 (30.3-42.9) % MCV 80 (79-97) fl MCH 26 L (28-32) pg MCHC 32 (30-34) % RDW 15.8 H (13.2-15.2) % Plt Count 371 (140-440) K/mm3 Sodium 138 (137-145) mmol/L Potassium 3.9 (3.6-5.0) mmol/L Chloride 103.6 (98-107) mmol/L Carbon Dioxide 26 (22-30) mmol/L Anion Gap 12 mmol/L BUN 8 (7-17) mg/dL Creatinine 0.6 L (0.7-1.2) mg/dL Estimated GFR > 60 ml/min BUN/Creatinine Ratio 13 % Glucose 90 (65-100) mg/dL Calcium 9.1 (8.4-10.2) mg/dL Total Bilirubin 0.20 (0.1-1.2) mg/dL AST 19 (5-40) units/L ALT 15 (7-56) units/L Alkaline Phosphatase 52 (35-129) units/L Total Protein 6.9 (6.3-8.2) g/dL Albumin 4.0 (3.9-5) g/dL Albumin/Globulin Ratio 1.4 % Lipase 18 (13-60) units/L HCG, Quant < 2 (0-4) mIU/mL Urine Color (Yellow) Urine Turbidity (Clear) Urine pH (5.0-7.0) Ur Specific [place] (1.003-1.030) Urine Protein (Negative) mg/dL Urine Glucose (UA) (Negative) mg/dL Urine Ketones (Negative) mg/dL Urine Blood (Negative) Urine Nitrite (Negative) Urine Bilirubin (Negative) Urine Urobilinogen (<2.0) mg/dL Ur Leukocyte Esterase (Negative) Urine WBC (Auto) (0.0-6.0) /HPF Urine RBC (Auto) (0.0-6.0) /HPF U Epithel Cells (Auto) (0-13.0) /HPF Urine Mucus /HPF Group A Strep Rapid (Negative) 12/13/18 12/14/18 Range/Units Unknown 02:00 WBC (4.5-11.0) K/mm3 RBC (3.65-5.03) M/mm3 Hgb (10.1-14.3) gm/dl Hct (30.3-42.9) % MCV (79-97) fl MCH (28-32) pg MCHC (30-34) % RDW (13.2-15.2) % Plt Count (140-440) K/mm3 Sodium (137-145) mmol/L Potassium (3.6-5.0) mmol/L Chloride (98-107) mmol/L Carbon Dioxide (22-30) mmol/L Anion Gap mmol/L BUN (7-17) mg/dL Creatinine (0.7-1.2) mg/dL Estimated GFR ml/min BUN/Creatinine Ratio % Glucose (65-100) mg/dL Calcium (8.4-10.2) mg/dL Total Bilirubin (0.1-1.2) mg/dL AST (5-40) units/L ALT (7-56) units/L Alkaline Phosphatase (35-129) units/L Total Protein (6.3-8.2) g/dL Albumin (3.9-5) g/dL Albumin/Globulin Ratio % Lipase (13-60) units/L HCG, Quant (0-4) mIU/mL Urine Color Yellow (Yellow) Urine Turbidity Clear (Clear) Urine pH 6.0 (5.0-7.0) Ur Specific [place] 1.020 (1.003-1.030) Urine Protein <15 mg/dl (Negative) mg/dL Urine Glucose (UA) Neg (Negative) mg/dL Urine Ketones Neg (Negative) mg/dL Urine Blood Neg (Negative) Urine Nitrite Neg (Negative) Urine Bilirubin Neg (Negative) Urine Urobilinogen 2.0 (<2.0) mg/dL Ur Leukocyte Esterase Neg (Negative) Urine WBC (Auto) 1.0 (0.0-6.0) /HPF Urine RBC (Auto) 2.0 (0.0-6.0) /HPF U Epithel Cells (Auto) 2.0 (0-13.0) /HPF Urine Mucus 2+ /HPF Group A Strep Rapid Negative (Negative) - Medical Decision Making Patient was examined by me. Vitals are normal and patient is in no acute distress. Obtained labs. All labs are unremarkable. Physical findings susceptible to gastroenteritis. Viral pharyngitis. Patient informed of results. Start Imodium, Zofran, Cepacol, and medrol dose hanna. Referral to [facility] for continued care. Plan discussed with patient to discharge home and treat outp atient. Patient discharged home in stable condition. Follow up with PCP in 2-3 days. Critical care attestation.: If time is entered above; I have spent that time in minutes in the direct care of this critically ill patient, excluding procedure time. ED Disposition Clinical Impression: Sore throat (viral), Nausea, vomiting, and diarrhea, Gastroenteritis, Abdominal cramping Disposition: TO HOME OR SELFCARE Is pt being admited?: No Does the pt Need Aspirin: No Condition: Stable Instructions: Abdominal Pain (ED), Acute Nausea and Vomiting (ED), Gastroenteritis (ED) Additional Instructions: As we discussed sore throat is most likely, from upper respiratory infection. Frequent hand washing is important to reduce spread. Prompt disinfection of contaminated surfaces with household chlorine bleach- based lab systems analyst and washing of soiled clothing and bedding should be advised. If food or water is thought to be contaminated, it should be avoided. Increase fluid intake. Drinks high in sugars such as carbonated soft drinks, fruit juice, and highly sugared liquids should be avoided. Return to the emergency room if lethargic, irritable, change in mental status, vomiting, inability to tolerate liquids. Prescriptions: Dextromethorphan/Benzocaine [Cepacol Sorethroat-Cough Lissa] 1 each PO Q2H PRN #14 lozenge PRN Reason: Sore Throat Loperamide HCl [Imodium A-D] 2 mg PO DAILY PRN #14 tablet PRN Reason: Diarrhea methylPREDNISolone [Medrol] 4 mg PO DAILY #1 tab.ds.pk Ondansetron [Zofran Odt] 4 mg PO Q8HR PRN #15 tab.rapdis PRN Reason: Nausea And Vomiting Referrals: OBIEKWE,ONWURA, MD [Primary Care Provider] - 3-5 Days [facility] [Outside] - 3-5 Days [facility] [Outside] - 3-5 Days Forms: Work/School Release Form(ED) Time of Disposition: 03:12
== END 2018-12-14 03:25 | disposition home or self-care (01) ==
LOC: ED 20:57
DX: K52.9 Noninfective gastroenteritis and colitis, unspecified (principal); J02.8 Acute pharyngitis due to other specified organisms; G43.909 Migraine, unspecified, not intractable, without status migrainosus; J45.909 Unspecified asthma, uncomplicated
CPT/HCPCS: 36415; 80053; 81001; 83690; 84702; 85027; 87116; 87430

== ENCOUNTER 2019-01-19 11:35 | Emergency (ER) | payer OTHER ==
--- NOTE | 2019-01-19 11:59 | Emergency Department Report ---
Chief Complaint: Upper Respiratory Infection Stated Complaint: FLU SYM Time Seen by Provider: 01/19/19 11:55 - HPI History of Present Illness: Pt presents with sore throat, cough, vomiting, SOB, CP, fever she states that it hurts to swallow (+) sick contacts with her daughters posterior oropharynx erythema, swabbed for strep in triage hx of asthma - Exam Vital Signs: Vital Signs 01/19/19 11:52 Temperature 99.1 F Pulse Rate 106 H Respiratory 18 Rate Blood Pressure 124/64 O2 Sat by Pulse 97 Oximetry MSE screening note: Focused history and physical exam performed. Due to findings the following was ordered: rapid strep, CXR, EKG ED Disposition for MSE Condition: Stable
--- NOTE | 2019-01-19 12:45 | Emergency Department Report ---
- General Chief Complaint: Upper Respiratory Infection Stated Complaint: FLU SYM Time Seen by Provider: 01/19/19 11:55 Source: patient Mode of arrival: Ambulatory Limitations: No Limitations - History of Present Illness Initial Comments: This is a 28-year-old female nontoxic, well nourished in appearance, no acute signs of distress presents to the ED with c/o of productive cough, sore throat, rhinorrhea, nasal congestion x2 days. Patient staetd that during coughing episode she develops chest pain and shortness of breathe,otherwise patient denies any chest pain or SOB. Patient describes productive cough as yellow mucus production. Patient agrees to sick contact with her children with similar symptoms. Patient denies any recent travels, long car, recent hospital stays. Patient denies any calf pain or calf tenderness. Patient denies any chest pain, short of breath, fever, chills, nausea, vomiting, hemoptysis, numbness, tingling, headache or stiff neck. Patient denies any allergies. MD Complaint: cough, sore throat, rhinorrhea, nasal congestion -: days(s) (2) Severity: mild Severity scale (0 -10): 8 Quality: aching Consistency: constant Improves With: nothing Worsens With: nothing Associated Symptoms: rhinorrhea, nasal congestion, sore throat, cough. denies: fever, chills, myalgias, diaphoresis, headache, stiff neck, chest pain, sh ortness of breath, abdominal pain, nausea, vomiting, diarrhea, dysuria, rash, confusion, right sweats, weight loss, epistaxis, hoarseness, ear pain Treatments Prior to Arrival: none - Related Data Previous Rx's Medication Instructions Recorded Last Taken Type Fluconazole [Diflucan TAB] 150 mg PO ONCE #1 tablet 08/09/18 Unknown Rx Naproxen [Naprosyn] 500 mg PO BID PRN #20 tablet 08/09/18 Unknown Rx Ibuprofen [Motrin] 400 mg PO Q8H PRN #20 tablet 10/16/18 Unknown Rx Ondansetron [Zofran Odt] 4 mg PO Q8HR #20 tab.rapdis 10/16/18 Unknown Rx Ketorolac [Toradol] 10 mg PO Q6H PRN #20 tablet 11/14/18 Unknown Rx Dextromethorphan/Benzocaine 1 each PO Q2H PRN #14 lozenge 12/14/18 Unknown Rx [Cepacol Sorethroat-Cough Lissa] Loperamide HCl [Imodium A-D] 2 mg PO DAILY PRN #14 tablet 12/14/18 Unknown Rx Ondansetron [Zofran Odt] 4 mg PO Q8HR PRN #15 tab.rapdis 12/14/18 Unknown Rx methylPREDNISolone [Medrol] 4 mg PO DAILY #1 tab.ds.pk 12/14/18 Unknown Rx Ibuprofen [Motrin] 600 mg PO Q8H PRN #20 tablet 01/19/19 Unknown Rx Nystas/Diphen/Xyl Visc/Mylanta 15 ml MM Q4H PRN 5 Days ml 01/19/19 Unknown Rx [Magic Mouthwash] Allergies Allergy/AdvReac Type Severity Reaction Status Date / Time pineapple [Pineapple] Allergy Mild Itching Verified 01/19/19 11:36 coconut Allergy Severe Swelling Uncoded 11/14/18 08:31 ED Review of Systems ROS: Stated complaint: FLU SYM Other details as noted in HPI Constitutional: denies: chills, fever Eyes: denies: eye pain, eye discharge, vision change ENT: throat pain, congestion. denies: ear pain Respiratory: cough. denies: shortness of breath, wheezing Cardiovascular: denies: chest pain, palpitations Endocrine: no symptoms reported Gastrointestinal: denies: abdominal pain, nausea, diarrhea Genitourinary: denies: urgency, dysuria, discharge Musculoskeletal: denies: back pain, joint swelling, arthralgia Skin: denies: rash, lesions Neurological: denies: headache, weakness, paresthesias Psychiatric: denies: anxiety, depression Hematological/Lymphatic: denies: easy bleeding, easy bruising ED Past Medical Hx - Past Medical History Previous Medical History?: Yes Hx Congestive Heart Failure: No Hx Diabetes: (gestational) Hx Deep Vein Thrombosis: No Hx Renal Disease: No Hx Sickle Cell Disease: No Hx Headaches / Migraines: Yes Hx Seizures: No Hx Asthma: Yes (prn meds 3 yrs ago) Hx COPD: No Additional medical history: heart murmur, OBESITY. anemia, pneumonia - Surgical History Past Surgical History?: Yes Additional Surgical History: X 2 - Social History Smoking Status: Current Every Day Smoker Substance Use Type: None - Medications Home Medications: Home Medications Medication Instructions Recorded Confirmed Last Taken Type Fluconazole [Diflucan TAB] 150 mg PO ONCE #1 tablet 08/09/18 Unknown Rx Naproxen [Naprosyn] 500 mg PO BID PRN #20 tablet 08/09/18 Unknown Rx Ibuprofen [Motrin] 400 mg PO Q8H PRN #20 tablet 10/16/18 Unknown Rx Ondansetron [Zofran Odt] 4 mg PO Q8HR #20 tab.rapdis 10/16/18 Unknown Rx Ketorolac [Toradol] 10 mg PO Q6H PRN #20 tablet 11/14/18 Unknown Rx Dextromethorphan/Benzocaine 1 each PO Q2H PRN #14 lozenge 12/14/18 Unknown Rx [Cepacol Sorethroat-Cough Lissa] Loperamide HCl [Imodium A-D] 2 mg PO DAILY PRN #14 tablet 12/14/18 Unknown Rx Ondansetron [Zofran Odt] 4 mg PO Q8HR PRN #15 tab.rapdis 12/14/18 Unknown Rx methylPREDNISolone [Medrol] 4 mg PO DAILY #1 tab.ds.pk 12/14/18 Unknown Rx Ibuprofen [Motrin] 600 mg PO Q8H PRN #20 tablet 01/19/19 Unknown Rx Nystas/Diphen/Xyl Visc/Mylanta 15 ml MM Q4H PRN 5 Days ml 01/19/19 Unknown Rx [Magic Mouthwash] ED Physical Exam - General Limitations: No Limitations General appearance: alert, in no apparent distress - Head Head exam: Present: atraumatic, normocephalic - Eye Eye exam: Present: normal appearance - Expanded ENT Exam Expanded Ear exam: Present: normal external inspection Mouth exam: Present: normal external inspection. Absent: drooling, trismus, muffled voice Teeth exam: Present: normal inspection Throat exam: Positive: tonsillar erythema, tonsillomegaly, tonsillar exudate, other (uvula midline). Negative: R peritonsillar mass, L peritonsillar mass - Neck Neck exam: Present: normal inspection, full ROM, lymphadenopathy (bilateral tonsillar). Absent: tenderness, meningismus - Respiratory Respiratory exam: Present: normal lung sounds bilaterally. Absent: respiratory distress, wheezes, rales, rhonchi, stridor, chest wall tenderness, accessory muscle use, decreased breath sounds, prolonged expiratory - Cardiovascular Cardiovascular Exam: Present: regular rate, normal rhythm, normal heart sounds. Absent: irregular rhythm, systolic murmur, diastolic murmur, rubs, gallop - Extremities Exam Extremities exam: Present: normal inspection, full ROM - Back Exam Back exam: Present: normal inspection, full ROM - Neurological Exam Neurological exam: Present: alert, oriented X3 - Psychiatric Psychiatric exam: Present: normal affect, normal mood - Skin Skin exam: Present: warm, dry, intact, normal color. Absent: rash ED Course Vital Signs 01/19/19 11:52 Temperature 99.1 F Pulse Rate 106 H Respiratory 18 Rate Blood Pressure 124/64 O2 Sat by Pulse 97 Oximetry - Reevaluation(s) Reevaluation #1: 01/19/19 12:52 Patient is speaking in full sentences with no signs of distress noted. ED Medical Decision Making - Medical Decision Making This is a 28-year-old female that presents with strep throat and bronchitis. Patient is stable was examined by me. There is no drooling. No tonsillar abscess noted. Uvula is midline. Chest xray unremarkable and dictated by the radiologist. Patient received Bicillin IM in the ED. Vital signs are stable. Patient is not febrile and normal heart rate. Patient was instructed to Follow- up with a primary care doctor in 3-5 days or if symptoms worsen and continue return to emergency room as soon as possible. At time of discharge, the patient does not seem toxic or ill in appearance. No acute signs of distress noted. Patient agrees to discharge treatment plan of care. No further questions noted by the patient. Critical care attestation.: If time is entered above; I have spent that time in minutes in the direct care of this critically ill patient, excluding procedure time. ED Disposition Clinical Impression: Strep pharyngitis, Bronchitis Disposition: DC-01 TO HOME OR SELFCARE Is pt being admited?: No Does the pt Need Aspirin: No Condition: Stable Instructions: Strep Throat (ED), Acute Bronchitis (ED) Additional Instructions: Follow-up with a primary care doctor in 3-5 days or if symptoms worsen and continue return to emergency room as soon as possible. Prescriptions: Nystas/Diphen/Xyl Visc/Mylanta [Magic Mouthwash] 15 ml MM Q4H PRN 5 Days ml PRN Reason: Sore Throat Ibuprofen [Motrin] 600 mg PO Q8H PRN #20 tablet PRN Reason: Pain Referrals: SANTOS ALEJANDRO MD [Primary Care Provider] - 3-5 Days PRIMARY CAREMD [Referring] - 3-5 Days ANGEL MARTIN MD [Staff Physician] - 3-5 Days [facility] [Outside] - 3-5 Days [facility] [Outside] - 3-5 Days Forms: Work/School Release Form(ED)
[2019-01-19] MEDS ORDERED: BICILLIN L-A IM ONE (12:51)
--- NOTE | 2019-01-19 13:53 | XRay Report ---
ROUTINE CHEST, TWO VIEWS: HISTORY: Cough, chest pain. The trachea, heart, mediastinal contour, lung cee and bony thorax are unremarkable. IMPRESSION: Unremarkable chest x-ray.
[2019-01-19 14:11] VITALS: BP 122/74
== END 2019-01-19 14:08 | disposition home or self-care (01) ==
LOC: ED 11:35
DX: J02.0 Streptococcal pharyngitis (principal); J40 Bronchitis, not specified as acute or chronic; G43.909 Migraine, unspecified, not intractable, without status migrainosus; E66.9 Obesity, unspecified; D64.9 Anemia, unspecified; F17.200 Nicotine dependence, unspecified, uncomplicated; Z91.018 Allergy to other foods
CPT/HCPCS: 71046; 87430; 96372; 99284; J0561

== ENCOUNTER 2019-12-13 13:35 | Outpatient (CLI) | payer OTHER ==
--- NOTE | 2019-12-13 17:16 | Magnetic Resonance Report ---
MRI PELVIS WITHOUT AND WITH CONTRAST INDICATION / CLINICAL INFORMATION: D25.1Intramural leiomyoma of uterus. TECHNIQUE: Multiplanar, multisequence series were obtained through the pelvis. The patient received 20 mL of Mul tiHance intravenously. COMPARISON: Pelvic ultrasound on 06/06/2018. FINDINGS: BOWEL: No significant abnormality. APPENDIX: No significant abnormality. PERITONEUM: No free fluid. No free air. No fluid collection. LYMPH NODES: No significant adenopathy. ARTERIES: No significant abnormality. VEINS: No significant abnormality. URINARY BLADDER: No significant abnormality. REPRODUCTIVE ORGANS: There is thickening of the junctional zone of the myometrium, with combined thic kness of 15 mm. Additionally, there are small areas of high T2 signal in the myometrium. There are no discrete fibroids. There is a tiny nabothian cyst in the cervix. Both ovaries appear normal. ADDITIONAL FINDINGS: None. SKELETAL SYSTEM: No significant abnormality. IMPRESSION: 1. Findings suggesting uterine adenomyosis. No discrete fibroids identified. Signer Name: Gabriel Montanez MD Signed: 12/13/2019 5:12 PM Workstation Name: [id number]
== END 2019-12-13 13:36 | disposition home or self-care (01) ==
LOC: MRI 13:35
PROVIDERS: ATTEND Obstetrics & Gynecology
DX: N88.8 Other specified noninflammatory disorders of cervix uteri (principal); D25.1 Intramural leiomyoma of uterus
CPT/HCPCS: 72197; A9577

== ENCOUNTER 2020-07-18 08:35 | Emergency (ER) | payer OTHER ==
[2020-07-18 08:46] VITALS: BP 136/81
[2020-07-18 09:31] LABS: Bilirubin,Urine NEG (Negative); Blood,Urine LG (Negative); Color,Urine Yellow (Yellow); Protein,Urine <15 mg/dL mg/dL (Negative); RBC,Urine < 1.0 /HPF (0.0-6.0); Urobilinogen,Urine < 2.0 mg/dL (<2.0)
[2020-07-18 09:35] LABS: WBC,Urine < 1.0 /HPF (0.0-6.0)
--- NOTE | 2020-07-18 09:35 | Emergency Department Report ---
ED HPI - General Chief complaint: Vaginal Bleeding Stated complaint: 6 WKS /LIGHT BLEEDING Time Seen by Provider: 07/18/20 09:07 Source: patient Mode of arrival: Ambulatory Limitations: No Limitations - History of Present Illness Initial comments: Patient is a 30-year-old female presents emergency room complaints of vaginal spotting that began 2 days ago. She states that she is currently 6 weeks . She states her last menstrual cycle was June 09. She states that she is going to [facility] for her OB care. She denies any abdominal pain, vomiting, dysuria, fever, abnormal vaginal discharge. She states that the spotting has been intermittent and that she is not having to wear a pad or tampon. She denies any heavy bleeding or passing clots. Past medical history of asthma and anemia. No allergies to medications. /A2 - Related Data Previous Rx's Medication Instructions Recorded Last Taken Type Fluconazole (Nf) [Diflucan TAB] 150 mg PO ONCE #1 tablet 08/09/18 Unknown Rx Naproxen [Naprosyn] 500 mg PO BID PRN #20 tablet 08/09/18 Unknown Rx Ibuprofen [Motrin] 400 mg PO Q8H PRN #20 tablet 10/16/18 Unknown Rx Ondansetron [Zofran Odt] 4 mg PO Q8HR #20 tab.rapdis 10/16/18 Unknown Rx Ketorolac [Toradol] 10 mg PO Q6H PRN #20 tablet 11/14/18 Unknown Rx Dextromethorphan/Benzocaine 1 each PO Q2H PRN #14 lozenge 12/14/18 Unknown Rx [Cepacol Sorethroat-Cough Lissa] Loperamide HCl [Imodium A-D] 2 mg PO DAILY PRN #14 tablet 12/14/18 Unknown Rx Ondansetron [Zofran Odt] 4 mg PO Q8HR PRN #15 tab.rapdis 12/14/18 Unknown Rx methylPREDNISolone [Medrol] 4 mg PO DAILY #1 tab.ds.pk 12/14/18 Unknown Rx Ibuprofen [Motrin] 600 mg PO Q8H PRN #20 tablet 01/19/19 Unknown Rx Nystas/Diphen/Xyl Visc/Mylanta 15 ml MM Q4H PRN 5 Days ml 01/19/19 Unknown Rx [Magic Mouthwash] Allergies Allergy/AdvReac Type Severity Reaction Status Date / Time pineapple [Pineapple] Allergy Mild Itching Verified 01/19/19 11:36 coconut Allergy Severe Swelling Uncoded 11/14/18 08:31 ED Review of Systems ROS: Stated complaint: 6 WKS /LIGHT BLEEDING Other details as noted in HPI Comment: All other systems reviewed and negative ED Past Medical Hx - Past Medical History Hx Congestive Heart Failure: No Hx Diabetes: (gestational) Hx Deep Vein Thrombosis: No Hx Renal Disease: No Hx Sickle Cell Disease: No Hx Headaches / Migraines: Yes Hx Seizures: No Hx Asthma: Yes (prn meds 3 yrs ago) Hx COPD: No Additional medical history: heart murmur, OBESITY. anemia, pneumonia - Surgical History Additional Surgical History: X 2 - Social History Smoking Status: Never Smoker - Medications Home Medications: Home Medications Medication Instructions Recorded Confirmed Last Taken Type Fluconazole (Nf) [Diflucan TAB] 150 mg PO ONCE #1 tablet 08/09/18 Unknown Rx Naproxen [Naprosyn] 500 mg PO BID PRN #20 tablet 08/09/18 Unknown Rx Ibuprofen [Motrin] 400 mg PO Q8H PRN #20 tablet 10/16/18 Unknown Rx Ondansetron [Zofran Odt] 4 mg PO Q8HR #20 tab.rapdis 10/16/18 Unknown Rx Ketorolac [Toradol] 10 mg PO Q6H PRN #20 tablet 11/14/18 Unknown Rx Dextromethorphan/Benzocaine 1 each PO Q2H PRN #14 lozenge 12/14/18 Unknown Rx [Cepacol Sorethroat-Cough Lissa] Loperamide HCl [Imodium A-D] 2 mg PO DAILY PRN #14 tablet 12/14/18 Unknown Rx Ondansetron [Zofran Odt] 4 mg PO Q8HR PRN #15 tab.rapdis 12/14/18 Unknown Rx methylPREDNISolone [Medrol] 4 mg PO DAILY #1 tab.ds.pk 12/14/18 Unknown Rx Ibuprofen [Motrin] 600 mg PO Q8H PRN #20 tablet 01/19/19 Unknown Rx Nystas/Diphen/Xyl Visc/Mylanta 15 ml MM Q4H PRN 5 Days ml 01/19/19 Unknown Rx [Magic Mouthwash] ED Physical Exam - General Limitations: No Limitations General appearance: alert, in no apparent distress - Head Head exam: Present: atraumatic, normocephalic - Eye Eye exam: Present: normal appearance - ENT ENT exam: Present: mucous membranes moist - Respiratory Respiratory exam: Present: normal lung sounds bilaterally. Absent: respiratory distress, wheezes, rales, rhonchi, stridor, chest wall tenderness, accessory muscle use, decreased breath sounds, prolonged expiratory - Cardiovascular Cardiovascular Exam: Present: regular rate, normal rhythm, normal heart sounds. Absent: systolic murmur, diastolic murmur, rubs, gallop - GI/Abdominal GI/Abdominal exam: Present: soft, normal bowel sounds. Absent: distended, tenderness, guarding, rebound, rigid - Neurological Exam Neurological exam: Present: alert, oriented X3 - Psychiatric Psychiatric exam: Present: normal affect, normal mood - Skin Skin exam: Present: warm, dry, intact ED Course Vital Signs 07/18/20 08:44 Temperature 98.2 F Pulse Rate 101 H Respiratory 18 Rate Blood Pressure 136/81 O2 Sat by Pulse 99 Oximetry ED Medical Decision Making - Lab Data Result diagrams: 07/18/20 09:09 07/18/20 09:09 Lab Results 07/18/20 07/18/20 07/18/20 Range/Units 08:38 09:09 09:09 WBC 8.5 (4.5-11.0) K/mm3 RBC 4.29 (3.65-5.03) M/mm3 Hgb 12.3 (10.1-14.3) gm/dl Hct 37.6 (30.3-42.9) % MCV 88 (79-97) fl MCH 29 (28-32) pg MCHC 33 (30-34) % RDW 13.8 (13.2-15.2) % Plt Count 327 (140-440) K/mm3 Sodium 139 (137-145) mmol/L Potassium 3.6 (3.6-5.0) mmol/L Chloride 103.6 (98-107) mmol/L Carbon Dioxide 22 (22-30) mmol/L Anion Gap 17 mmol/L BUN 7 (7-17) mg/dL Creatinine 0.6 (0.6-1.2) mg/dL Estimated GFR > 60 ml/min BUN/Creatinine Ratio 12 % Glucose 135 H (65-100) mg/dL Calcium 9.0 (8.4-10.2) mg/dL HCG, Quant (0-4) mIU/mL Urine Color Yellow (Yellow) Urine Turbidity Slightly-cloudy (Clear) Urine pH 6.0 (5.0-7.0) Ur Specific [place] 1.024 (1.003-1.030) Urine Protein <15 mg/dl (Negative) mg/dL Urine Glucose (UA) Neg (Negative) mg/dL Urine Ketones Neg (Negative) mg/dL Urine Blood Lg (Negative) Urine Nitrite Neg (Negative) Urine Bilirubin Neg (Negative) Urine Urobilinogen < 2.0 (<2.0) mg/dL Ur Leukocyte Esterase Neg (Negative) Urine WBC (Auto) < 1.0 (0.0-6.0) /HPF Urine RBC (Auto) < 1.0 (0.0-6.0) /HPF 07/18/20 Range/Units 09:09 WBC (4.5-11.0) K/mm3 RBC (3.65-5.03) M/mm3 Hgb (10.1-14.3) gm/dl Hct (30.3-42.9) % MCV (79-97) fl MCH (28-32) pg MCHC (30-34) % RDW (13.2-15.2) % Plt Count (140-440) K/mm3 Sodium (137-145) mmol/L Potassium (3.6-5.0) mmol/L Chloride (98-107) mmol/L Carbon Dioxide (22-30) mmol/L Anion Gap mmol/L BUN (7-17) mg/dL Creatinine (0.6-1.2) mg/dL Estimated GFR ml/min BUN/Creatinine Ratio % Glucose (65-100) mg/dL Calcium (8.4-10.2) mg/dL HCG, Quant 141.8 H (0-4) mIU/mL Urine Color (Yellow) Urine Turbidity (Clear) Urine pH (5.0-7.0) Ur Specific [place] (1.003-1.030) Urine Protein (Negative) mg/dL Urine Glucose (UA) (Negative) mg/dL Urine Ketones (Negative) mg/dL Urine Blood (Negative) Urine Nitrite (Negative) Urine Bilirubin (Negative) Urine Urobilinogen (<2.0) mg/dL Ur Leukocyte Esterase (Negative) Urine WBC (Auto) (0.0-6.0) /HPF Urine RBC (Auto) (0.0-6.0) /HPF Vital Signs 07/18/20 08:44 Temperature 98.2 F Pulse Rate 101 H Respiratory 18 Rate Blood Pressure 136/81 O2 Sat by Pulse 99 Oximetry - Radiology Data Radiology results: report reviewed OB Ultrasound HISTORY: , vaginal spotting. Spotting without cramping for the past 2 days TECHNIQUE: Grayscale and color imaging performed. COMPARISON: Vaginal ultrasound from 06/06/2018 FINDINGS: Transabdominal and endovaginal technique was performed. Uterus measures 10.2 x 5.6 x 5.3 cm with endometrial echocomplex measuring 3.5 cm. No intrauterine gestation identified. Both ovaries appear normal with preserved blood flow. There is trace simple pelvic free fluid. IMPRESSION: Thickened endometrium with no IUP identified. Otherwise nothing acute. Signer Name: Guy Vanessa MD Signed: 07/18/2020 10:10 AM Workstation Name: [id number] Transcribed By: CARLOTA Dictated By: Guy Vanessa MD Electronically Authenticated By: Guy Vanessa MD Signed Date/Time: 07/18/20 1010 DD/ 1007 TD/TT: - Medical Decision Making Patient is a 30-year-old female presents emergency room complaints of vaginal spotting that began 2 days ago. She states that she is currently 6 weeks . She states her last menstrual cycle was June 09. She states that she is going to [facility] for her OB care. She denies any abdominal pain, vomiting, dysuria, fever, abnormal vaginal discharge. She states that the spotting has been intermittent and that she is not having to wear a pad or tampon. She denies any heavy bleeding or passing clots. Past medical history of asthma and anemia. No allergies to medications. /A2. VSS. no abd ttp on exam. CBC is normal, bmp with mildly elevated non fasting glucose at 135, hcg quant is 141.8. UA is WNL. pt is Rh (+). OB US: Thickened endometrium with no IUP identified. Otherwise nothing acute. Given that hCG quant is very low ultrasound findings could represent complete versus very early . Patient will have to have a repeat quant in 2 days. Discussed the importance of follow-up with the patient and the importance of having a repeat hCG quant. Patient verbalized understanding. Discussed with patient to continue taking her vitamin. Advised pt Please practice pelvic rest. May take Tylenol if you begin experiencing abdominal cramping. Please follow-up with santos within the next 2 days. You need to have a repeat hCG quant in 2 days. Today 07/18/2020 your hCG quant is 141.8. Return to emergency room immediately for any new or worsening symptoms. - Differential Diagnosis IUP, ectopic, complete/threatened , subchorionic hemorrhage, cyst Critical care attestation.: If time is entered above; I have spent that time in minutes in the direct care of this critically ill patient, excluding procedure time. ED Disposition Clinical Impression: Vaginal spotting, Elevated serum hCG Disposition: - TO HOME OR SELFCARE Is pt being admited?: No Does the pt Need Aspirin: No Condition: Stable Instructions: Threatened Miscarriage (ED) Additional Instructions: Please practice pelvic rest. May take Tylenol if you begin experiencing abdominal cramping. Please follow-up with santos within the next 2 days. You need to have a repeat hCG quant in 2 days. Today 07/18/2020 your hCG quant is 141.8. Return to emergency room immediately for any new or worsening symptoms. Referrals: SANTOS ALEJANDRO MD [Primary Care Provider] - 2-3 Days Time of Disposition: 10:24 Print Language: MAORI
[2020-07-18 09:45] LABS: Hematocrit 37.6 % (30.3-42.9); Hemoglobin 12.3 gm/dl (10.1-14.3); Mean Corpuscular HGB Conc 33 % (30-34); Mean Corpuscular Volume 88 fl (79-97); Platelet Count 327 K/mm3 (140-440); Red Blood Count 4.29 M/mm3 (3.65-5.03); Red Cell Distribution Width 13.8 % (13.2-15.2)
[2020-07-18 09:59] LABS: Blood Urea Nitrogen 7 mg/dL (7-17); Hemolysis Index 11
[2020-07-18 10:01] LABS: BUN/Creatinine Ratio 12
--- NOTE | 2020-07-18 10:14 | Ultrasound Report ---
OB Ultrasound HISTORY: , vaginal spotting. Spotting without cramping for the past 2 days TECHNIQUE: Grayscale and color imaging performed. COMPARISON: Vaginal ultrasound from 06/06/2018 FINDINGS: Transabdominal and endovaginal technique was performed. Uterus measures 10.2 x 5.6 x 5.3 cm with endometrial echocomplex measuring 3.5 cm. No intrauterine ge station identified. Both ovaries appear normal with preserved blood flow. There is trace simple pelvi c free fluid. IMPRESSION: Thickened endometrium with no IUP identified. Otherwise nothing acute. Signer Name: Guy Vanessa MD Signed: 07/18/2020 10:10 AM Workstation Name: [id number]
== END 2020-07-18 10:25 | disposition home or self-care (01) ==
LOC: ED 08:35
DX: O20.8 Other hemorrhage in early pregnancy (principal); J45.909 Unspecified asthma, uncomplicated; Z98.890 Other specified postprocedural states; Z79.1 Long term (current) use of non-steroidal anti-inflammatories (NSAID); Z79.899 Other long term (current) drug therapy; Z91.018 Allergy to other foods; Z3A.01 Less than 8 weeks gestation of pregnancy
CPT/HCPCS: 36415; 76801; 76817; 80048; 81001; 84702; 85027

== ENCOUNTER 2021-03-28 17:44 | Emergency (ER) | payer OTHER ==
[2021-03-28 21:09] VITALS: BP 132/75
== END 2021-03-28 21:10 | disposition left against medical advice (07) ==
LOC: ED 17:44
DX: O26.891 Other specified pregnancy related conditions, first trimester (principal); R42 Dizziness and giddiness; Z3A.01 Less than 8 weeks gestation of pregnancy; Z53.21 Procedure and treatment not carried out due to patient leaving prior to being seen by health care provider

== ENCOUNTER 2022-06-07 21:12 | Emergency (ER) | payer OTHER ==
[2022-06-07 23:27] VITALS: BP 123/81
--- NOTE | 2022-06-08 00:06 | XRay Report ---
CHEST 1 VIEW 06/07/2022 10:55 PM INDICATION / CLINICAL INFORMATION: cough. COMPARISON: 2 views of the chest from 01/19/2019. FINDINGS: SUPPORT DEVICES: None. HEART / MEDIASTINUM: No significant abnormality. LUNGS / PLEURA: No significant pulmonary abnormality. No significant pleural effusion. No pneumothora x. ADDITIONAL FINDINGS: No significant additional findings. IMPRESSION: 1. No acute abnormality of the chest. Signer Name: Jose Manuel Leach MD Signed: 06/08/2022 12:02 AM Workstation Name: [id number]
== END 2022-06-08 02:00 | disposition left against medical advice (07) ==
LOC: ED 21:12
DX: J02.9 Acute pharyngitis, unspecified (principal); R05.9 Cough, unspecified; Z53.21 Procedure and treatment not carried out due to patient leaving prior to being seen by health care provider
CPT/HCPCS: 71046

== ENCOUNTER 2022-06-08 09:53 | Emergency (ER) | payer OTHER ==
[2022-06-08 10:21] VITALS: BP 134/67
--- NOTE | 2022-06-08 10:36 | Emergency Department Report ---
Minor Respiratory - HPI Chief Complaint: Dyspnea/Respdistress Stated Complaint: SOB/COUGH/NAUSEA/DIZZY/THROAT/EAR Time Seen by Provider: 06/08/22 10:20 Duration: 5 Days Pain Location: Chest Severity: mild ED Review of Systems ROS: Stated complaint: SOB/COUGH/NAUSEA/DIZZY/THROAT/EAR Other details as noted in HPI Comment: All other systems reviewed and negative ED Past Medical Hx - Past Medical History Previous Medical History?: Yes Hx Congestive Heart Failure: No Hx Diabetes: (gestational) Hx Deep Vein Thrombosis: No Hx Renal Disease: No Hx Sickle Cell Disease: No Hx Headaches / Migraines: Yes Hx Seizures: No Hx Asthma: Yes (prn meds 3 yrs ago) Hx COPD: No Additional medical history: heart murmur, OBESITY. anemia, pneumonia, hyperthyroid ( Graves disease ) - Surgical History Past Surgical History?: Yes Hx Cholecystectomy: Yes Additional Surgical History: X 3 - Family History Family history: no significant - Social History Smoking Status: Never Smoker Substance Use Type: None - Medications Home Medications: Home Medications Medication Instructions Recorded Confirmed Last Taken Type Fluconazole (Nf) [Diflucan TAB] 150 mg PO ONCE #1 tablet 08/09/18 Unknown Rx Naproxen [Naprosyn] 500 mg PO BID PRN #20 tablet 08/09/18 Unknown Rx Ibuprofen [Motrin] 400 mg PO Q8H PRN #20 tablet 10/16/18 Unknown Rx Ondansetron [Zofran Odt] 4 mg PO Q8HR #20 tab.rapdis 10/16/18 Unknown Rx Ketorolac [Toradol] 10 mg PO Q6H PRN #20 tablet 11/14/18 Unknown Rx Dextromethorphan/Benzocaine 1 each PO Q2H PRN #14 lozenge 12/14/18 Unknown Rx [Cepacol Sorethroat-Cough Lissa] Loperamide HCl [Imodium A-D] 2 mg PO DAILY PRN #14 tablet 12/14/18 Unknown Rx Ondansetron [Zofran Odt] 4 mg PO Q8HR PRN #15 tab.rapdis 12/14/18 Unknown Rx methylPREDNISolone [Medrol] 4 mg PO DAILY #1 tab.ds.pk 12/14/18 Unknown Rx Ibuprofen [Motrin] 600 mg PO Q8H PRN #20 tablet 01/19/19 Unknown Rx Nystas/Diphen/Xyl Visc/Mylanta 15 ml MM Q4H PRN 5 Days ml 01/19/19 Unknown Rx [Magic Mouthwash] Minor Respiratory Exam - Exam General: Vital signs noted. No distress. Alert and acting appropriately. HEENT: Yes Moist Mucous Membranes, No Pharyngeal Erythema, No Pharyngeal Exudates, No Rhinorrhea, No Conjuctival Injection, No Frontal Tenderness, No Maxillary Tenderness Ear: Neither TM Bulge, Neither TM Erythema, Neither EAC Pain, Neither EAC Discharge Neck: Yes Supple, No Adenopathy Lungs: Yes Good Air Exchange, No Wheezes, No Ronchi, No Stridor, No Cough, No Labored Respirations, No Retractions, No Use of Accessory Muscles, No Other Abnormal Lung Sounds Heart: Yes Regular, No Murmur Abdomen: Yes Normal Bowel Sounds, No Tenderness, No Peritoneal Signs Skin: No Rash, No Edema Neurologic: Alert and oriented, no deficits. Musculoskeletal: Unremarkable. ED Course Vital Signs 06/08/22 10:16 Temperature 98.3 F Pulse Rate 82 Respiratory 14 Rate Blood Pressure 134/67 O2 Sat by Pulse 99 Oximetry ED Medical Decision Making - Radiology Data Radiology results: report reviewed, image reviewed - Medical Decision Making EMR REVIEWED FROM VISIT LAST NIGHT - P LEFT WO BEING SEEN Critical care attestation.: If time is entered above; I have spent that time in minutes in the direct care of this critically ill patient, excluding procedure time. ED Disposition Clinical Impression: URI (upper respiratory infection) Disposition: HOME / SELF CARE / HOMELESS Is pt being admited?: No Does the pt Need Aspirin: No Instructions: Upper Respiratory Infection, Adult, [id number] Additional Instructions: OVER THE COUNTER SYMPTOM MANAGEMENT WE DISCUSSED FOLLOW UP WITH PCP REFERRAL BELOW Referrals: JOVAN TUTTLE MD [Staff Physician] - 3-5 Days Forms: Work/School Release Form(ED) Time of Disposition: 14:18
== END 2022-06-08 14:00 | disposition home or self-care (01) ==
LOC: ED 09:53
DX: J06.9 Acute upper respiratory infection, unspecified (principal); J45.909 Unspecified asthma, uncomplicated; Z90.49 Acquired absence of other specified parts of digestive tract; Z98.890 Other specified postprocedural states; Z91.018 Allergy to other foods; Z79.899 Other long term (current) drug therapy
CPT/HCPCS: 99282